=== PATIENT | female | born 1950 | race Caucasian/White ===

== ENCOUNTER 2017-06-23 16:19 | Inpatient (IN) | payer MEDICARE, OTHER, SELFPAY ==
[2017-06-23 16:20] VITALS: BP 140/92; PULSE 85; RESP 18; TEMP 36.4; O2SAT 100; BMI 24.0
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
[2017-06-23 17:52] VITALS: BP 121/76; PULSE 64; RESP 18; O2SAT 99
[2017-06-23 18:06] LABS: Absolute Lymphocyte Count 0.61 X10^3/ul (0.83-4.51); Absolute Neutrophil Count 10.9 X10^3/uL (2.0-7.7); Basophil# 0.02 X10^3/uL; Basophil% 0.2 % (0-1); Eosinophil# 0.02 X10^3/uL; Eosinophils% 0.2 % (0-5); Hematocrit 34.8 % (37-47); Hemoglobin 11.1 g/dl (12.0-15.0); Lymphocyte # 0.61 X10^3/ul (4.0); Lymphocyte % 5.1 % (19-41); Mean Corp Hgb Conc 31.9 g/gl (32-36); Mean Corpuscular Hgb 29.8 pg (27.0-32.0); Mean Corpuscular Volume 93.5 fL (81-99); Monocyte# 0.42 X10^3/uL; Monocyte% 3.5 % (0-10); Neutrophil # 10.88 X10^3/uL (2.7-7.7); Neutrophil % 90.7 % (47-70); Platelet Count 352 K/mm3 (150-450); RBC Distribution Width CV 13.7 % (11.6-14.6); RBC Distribution Width SD 46.8 fl (35.1-43.9); Red Blood Count 3.72 M/mm3 (4.2-5.4)
[2017-06-23 18:07] LABS: POSITIVE COUNT NO; POSITIVE DIFFERENTIAL NO; POSITIVE MORPHOLOGY NO
[2017-06-23 18:17] LABS: Anion Gap 8 (5-15); BUN 8 mg/dL (7-18); BUN/Creat Ratio 11.8 RATIO (10-20); Calcium,Total 8.8 mg/dL (8.5-10.1); Chloride 105 mmol/L (98-107); Creatinine, Serum 0.68 mg/dL (0.55-1.02); EST Glomerular Filtration Rate 92 mL/min (>60); Est Glom Filt Rate - Afr Amer 111 mL/min (>60); Estimated Creatinine Clearance 55.82 ml/min; Glucose 128 mg/dL (74-106); Potassium 3.5 mmol/L (3.5-5.1); Sodium Level 139 mmol/L (136-145)
--- NOTE | 2017-06-23 18:20 | NURSING ---
PATIENT UNABLE TO BE ADMITTED, NOT REGISTERED
[2017-06-23 18:42] VITALS: BP 121/79; PULSE 84; RESP 18; O2SAT 99
[2017-06-23 20:12] VITALS: BP 139/75; PULSE 71; RESP 18; O2SAT 99
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
[2017-06-23 20:42] VITALS: BMI 21.9
[2017-06-23 20:48] VITALS: BMI 21.9
[2017-06-23 21:05] VITALS: BP 113/69; PULSE 46; RESP 16; TEMP 37; O2SAT 98
[2017-06-23] MEDS: oxyCODONE 5 MG Tablet PO (21:31)
[2017-06-23] MEDS: 0.9% Normal Saline 1,000 ML 100 ML IV (21:32)
[2017-06-24] MEDS: oxyCODONE 5 MG Tablet PO ×3 (04:05→20:37)
[2017-06-24 04:16] VITALS: BP 100/59; PULSE 86; RESP 18; TEMP 37.2; O2SAT 95
[2017-06-24 06:10] LABS: Absolute Lymphocyte Count 0.58 X10^3/ul (0.83-4.51); Absolute Neutrophil Count 5.3 X10^3/uL (2.0-7.7); Basophil# 0.03 X10^3/uL; Basophil% 0.5 % (0-1); Eosinophil# 0.01 X10^3/uL; Eosinophils% 0.2 % (0-5); Hematocrit 31.4 % (37-47); Hemoglobin 10.1 g/dl (12.0-15.0); Lymphocyte # 0.58 X10^3/ul (4.0); Lymphocyte % 9.1 % (19-41); Mean Corp Hgb Conc 32.2 g/gl (32-36); Mean Corpuscular Hgb 30.6 pg (27.0-32.0); Mean Corpuscular Volume 95.2 fL (81-99); Mean Platelet Vol. 8.6 fl (6.2-12.0); Monocyte# 0.42 X10^3/uL; Monocyte% 6.6 % (0-10); Neutrophil % 83.4 % (47-70); Platelet Count 311 K/mm3 (150-450); RBC Distribution Width CV 13.6 % (11.6-14.6); RBC Distribution Width SD 45.2 fl (35.1-43.9); White Blood Count 6.4 K/mm3 (4.4-11.0)
[2017-06-24 06:11] LABS: Differential Indicated SCAN CRITERIA MET; POSITIVE COUNT NO; POSITIVE DIFFERENTIAL YES; POSITIVE MORPHOLOGY NO
[2017-06-24 06:13] LABS: International Normalized Ratio 1.1; Partial Thromboplast Time 26.1 Seconds (24.1-36.2)
[2017-06-24 06:16] LABS: Differential Comment SCANNED
[2017-06-24 06:27] LABS: Anion Gap 7 (5-15); BUN 10 mg/dL (7-18); BUN/Creat Ratio 16.8 RATIO (10-20); Calcium,Total 8.8 mg/dL (8.5-10.1); Chloride 104 mmol/L (98-107); EST Glomerular Filtration Rate 107 mL/min (>60); Est Glom Filt Rate - Afr Amer 130 mL/min (>60); Estimated Creatinine Clearance 55.82 ml/min; Glucose 99 mg/dL (74-106); Potassium 3.9 mmol/L (3.5-5.1); Sodium Level 140 mmol/L (136-145)
[2017-06-24] MEDS: 0.9% Normal Saline 1,000 ML 100 ML IV (07:37)
[2017-06-24] MEDS: Calcium Carb/Vitamin D 1 TABLET Tablet PO (09:07)
[2017-06-24] MEDS: PARoxetine CR 12.5 MG Tablet 25 MG PO (09:07)
[2017-06-24] MEDS: Linacolotide 145 MCG CAPSULE 290 MCG PO (09:07)
[2017-06-24 09:19] VITALS: BP 91/59; PULSE 84; RESP 16; TEMP 37.1; O2SAT 98
[2017-06-24] MEDS: Polyethylene Glycol 3350 17 GM PACKET 34 GM PO (12:23)
[2017-06-24] MEDS: fentaNYL 25 MCG Patch TRANSDERM. (12:23)
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
--- NOTE | 2017-06-24 15:09 | NURSING ---
Up to [facility] at this time. Was recently ambulating halls with therapy. Does well ambulating and changing position.
[2017-06-24 15:36] VITALS: BP 99/62; PULSE 78; RESP 18; TEMP 37.2; O2SAT 96
[2017-06-24] MEDS: 0.9% NaCl Peripheral Flush Adult/Peds IV (15:36)
[2017-06-24 20:32] VITALS: BP 113/64; PULSE 81; RESP 16; TEMP 38.1; O2SAT 98
[2017-06-25 04:00] VITALS: BP 112/66; PULSE 74; RESP 16; TEMP 37.3; O2SAT 97
[2017-06-25] MEDS: oxyCODONE 5 MG Tablet PO (05:22)
[2017-06-25 09:05] VITALS: BP 106/61; PULSE 75; RESP 18; TEMP 36.8; O2SAT 98
[2017-06-25] MEDS: Linacolotide 145 MCG CAPSULE 290 MCG PO (09:27)
[2017-06-25] MEDS: PARoxetine CR 12.5 MG Tablet 25 MG PO (09:28)
[2017-06-25] MEDS: Calcium Carb/Vitamin D 1 TABLET Tablet PO (09:28)
--- NOTE | 2017-06-25 11:47 | CASEMGMT ---
Addendum entered by Мария Tariq 06/25/17 13:03: SW spoke w/pt again, [facility] is her second choice if rehab does not have a bed. RUDI Rosales, DRILLING [employer]OR Original Note: See assessment. SW spoke w/pt at bedside. Pt lives home alone, is normally fully independent. Pt does not feel she can go home just yet. SW reviewed rehab and SNF options, the difference between the two. Pt agreeable to referral to rehab. SW explained will make referral, and will need to see if insurance will authorize. SW explained if insurance will not authorize, we can look into residential option. SW gave pt list of SNF's that take her insurance, did explain that the hospital's TCU does not have any beds at present. Pt states understanding. SW explained will let her know as soon as rehab hears anything from insurance. SW called Jeana in rehab who is in agreement pt is appropriate and will make referral to insurance. SW will continue to follow. RUDI Rosales, DRILLING CONTRACTOR
[2017-06-25 13:10] LABS: Mucous, Urine 0 SEEN /hpf (<or=2+); Red Blood Cells-Urine 0 SEEN /hpf (0-5); Squamous Epithelial Cells - UA 0 SEEN /hpf (5-10)
[2017-06-25 13:14] LABS: Color, Urine Yellow (Yellow); Glucose, Dipstick Normal (Normal); Ketone-Dipstick Negative (Negative); Leukocyte Esterase-Dipstick 25 /ul (Negative); Nitrite-Dipstick Negative (Negative); Occult Blood-Urine 10 /ul (Negative); Protein-Dipstick Negative (Negative); Specific Gravity, Urine 1.015 (1.002-1.030); Urine Bilirubin Dipstick Negative (Negative); Urine Clarity Clear (Clear); Urine Urobilinogen Normal (Normal); Urine pH 6.5 (5.0 - 8.0)
[2017-06-25 13:22] LABS: Bacteria RARE /hpf (None Seen); White Blood Cells 0-5 SEEN /hpf (0-5)
[2017-06-25 13:59] VITALS: BP 101/58; PULSE 80; RESP 18; TEMP 36.3; O2SAT 96
--- NOTE | 2017-06-25 15:16 | PCM.DC ---
- Discharge Diagnoses Current Active Problems: Current Active and Chronic Problems Depression (Acute) Fracture of superior pubic ramus (Acute) Fracture of inferior pubic ramus (Acute) You will use the following diet at home:: Cardiac Your food should be the consistency of: Regular Discharge Activity: May not drive while taking narcotic pain medications. Allergies/Adverse Reactions: Allergies No Known Allergies Allergy (Verified 06/23/17 16:23) Medications to take at Discharge Paroxetine HCl [Paxil Cr] 25 mg PO DAILY 08/18/14 Linaclotide [Linzess] 290 mcg PO DAILY 06/23/17 Calcium Carb/Vitamin D [Os-Estuardo 500MG + D] 1 tablet PO DAILY tablet 06/25/17 Mag Hydrox/Al Hydrox/Simeth [Mylanta II] 30 ml PO Q6H PRN PRN udc 06/25/17 Oxycodone [Oxyir] 5 mg PO Q4H PRN PRN 1 Days #4 tablet 06/25/17 Polyethylene Glycol 3350 [Miralax] 34 gm PO DAILY packet 06/25/17 Primary Care Physician: Chalo Sierra Jr., MD [Primary Care Provider] - Please follow up with your Primary Care Physician in: in 2 weeks
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
--- NOTE | 2017-06-25 15:20 | CASEMGMT ---
Patient was approved to go to inpatient rehab today. LIDIA notified Dr Jacobsen and he will d/c patient today. LIDIA called Jeana in the rehab unit and let her know patient will come today. LIDIA let patient know and answered her questions. She said she could notify family. LIDIA also let RN know that patient can go to 4th floor rehab today once d/c instructions are done. Plan: [facility] 4th floor rehab unit. Verena GREGORY MSW
== END 2017-06-25 15:54 | DRG 536 ==
LOC: ED 18:31 → MS2 20:23
PROVIDERS: Admitting Provider Internal Medicine; Emergency Provider Emergency Medicine; Family Provider Internal Medicine; PCP Internal Medicine; Visit Provider Internal Medicine
DX: S32.512A Fracture of superior rim of left pubis, initial encounter for closed fracture (principal); F32.9 Major depressive disorder, single episode, unspecified; S32.592A Other specified fracture of left pubis, initial encounter for closed fracture; K59.09 Other constipation; V18.0XXA Pedal cycle driver injured in noncollision transport accident in nontraffic accident, initial encounter; Y93.55 Activity, bike riding; Y92.89 Other specified places as the place of occurrence of the external cause; Z79.899 Other long term (current) drug therapy
CPT/HCPCS: 72100; 73502; 73560; 73564; 80048; 81001; 85025; 85610; 85730; 87086; 87088; 97110; 97116; 97162; 97165; 99284; J7030; A4216; G8978; G8979; G8987; G8988; J2405

== ENCOUNTER 2017-06-25 16:53 | Inpatient (IN) | payer OTHER, SELFPAY ==
[2017-06-25 17:24] VITALS: BP 107/74; PULSE 86; RESP 16; TEMP 37; O2SAT 100; BMI 22.6
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
[2017-06-25] MEDS: oxyCODONE 5 MG Tablet PO ×2 (19:07→23:41)
[2017-06-25 20:02] VITALS: BMI 22.6
[2017-06-25] MEDS: Senna/Docusate Sodium 1 Tablet 2 TABLET PO (20:33)
[2017-06-25] MEDS: Heparin Injection 5,000 UNITS/ML Syringe 5000 UNITS SC (20:33)
[2017-06-25 21:52] VITALS: BP 106/64; PULSE 81; RESP 18; TEMP 37.1
[2017-06-26] MEDS: oxyCODONE 5 MG Tablet PO ×2 (05:18→11:19)
[2017-06-26] MEDS: Heparin Injection 5,000 UNITS/ML Syringe 5000 UNITS SC ×3 (05:18→19:53)
[2017-06-26] MEDS: Calcium Carb/Vitamin D 1 TABLET Tablet PO (08:01)
[2017-06-26] MEDS: Senna/Docusate Sodium 1 Tablet 2 TABLET PO (08:01)
[2017-06-26] MEDS: PARoxetine CR 12.5 MG Tablet 25 MG PO (08:01)
[2017-06-26] MEDS: Polyethylene Glycol 3350 17 GM PACKET 34 GM PO (08:02)
[2017-06-26 08:35] VITALS: BP 107/64; PULSE 84; RESP 17; TEMP 37.4; O2SAT 100
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
[2017-06-26] MEDS: Mag Hydrox/Al Hydrox/Simeth 30 ML UDC PO (11:19)
--- NOTE | 2017-06-26 13:46 | PCM.RU.PYE ---
Admission Information Status Changes from Prescreening?: No changes Identified Actual Problem List:: Falls, Mobility Impaired, Self Care Deficit Potential Problem List:: DVT, Bleeding, Infection, UTI, Aspiration, Falls, Skin Integrity, Depression Risk of Complications DVT: LMWH, SUSAN Hose, Sequential Compression Device Bleeding: Monitor Lab Values, Nursing to Teach Precautions for anti-coagulation therapy., Wound, if applicable, to be assessed every shift., Stroke patients assessed for lethargy or change in status. Infection: Clinical Staff to Monitor for S/S of infection:, S/S of infection include fever, redness, warmth, etc. Urinary Tract Infection: Monitor for frequency, burning, discomfort, or incontinence., Nursing will obtain urine sample for urinalysis and C&S when ordered. Aspiration: Clinical staff will monitor for coughing, drooling, congestion., Speech will evaluate swallowing and dsyphasia., Nursing will monitor patient swallowing during meals. Falls: Patient will be evaluated for Fall Precautions, Patient will be placed on Fall Precautions as indicated per protocol. Skin Breakdown: Nursing will assess skin daily using assessment tool., Nursing will place on Skin Breakdown Precautions as indicated. Pain: Clinical staff will assess patient's pain level per protocol., Medications will be given, if needed, and the pain level reassessed., Other methods: Massage, distraction, decrease stimulus, etc. used PRN. Plan of Care Patient requires physician specializing in physical medicine and rehab oversight to provide close medical supervision of rehab issues including: Pain Management, Sleep Problems, Bowel and Bladder, Medical and co-morbidity Management, DVT prophylaxis, Rehabilitation Leadership, Coordination of treatment team Patient needs Physical Therapy: For a minimum of 1 hour, At least 5 out of 7 days Patient needs Physical Therapy to improve:: Mobility, Mobility, Mobility, Strengthening, Transfers, Stretching, ROM, Endurance, Stairs, Gait, Balance Patient needs Occupational Therapy: For a minimum of 1 hour, At least 5 out of 7 days Patient needs Occupational Therapy to improve ADL's incl.: Eating, Grooming, Bathing, Dressing, Toileting, Toilet transfers, Community Reintegration, Higher functioning activities, Household tasks, Adaptive Equipment, Splinting, Other activities as determined Patient requires speech therapy: For a minimum of 1 hour, At least 5 out of 7 days Patient requires speech therapy for: Swallowing, Cognition, Language Skills, Compensatory Strategies Patient requires / Rehabilitation Nursing for: Pain Issues, Identifying and preventing risk factors, Monitoring and reporting current medical conditions, Assisting with ambulation, transfer, and all ADL's, Teaching patients about disease process and medications, Family teaching, Providing safe environment, Bowel and Bladder Issues, Skin integrity, Medication Management Patient needs Taffy Candy Maker/ Case Management for: Discharge Planning, Arranging Home Equipment or Services, Family Interventions Patient needs Dietary and Nutrition Services for: Adequate Nutrition, Nutritional Supplements, Nutritional Education Goals Patient will remain: free from falls, or injury at time of discharge. Patient will perform bed mobility at: MOD I level of assist. Patient will complete transfers from bed to chair at: MOD I level of assist. Patient will ambulate: 100 feet, with MOD I assist, with LRD Patient will complete upper body dressing at: MOD I level of assist. Patient will complete lower body dressing at: MOD I level of assist. Patient will complete toileting at: MOD I level of assist. Patient will perform bathing at: MOD I level of assist. Patient will complete grooming at: MOD I level of assist. Patient will complete home management skills at: MOD I level of assist. Patient will achieve: 12 stairs, at MOD I assist Patient will have pain level of: of 3 or less Patient's skin will: remain intact, free from infection. Patient will receive: adequate nutrition. Discharge Planning Pt Prognosis for Sig. Practical Improv. w/in Reasonable Time: Good Estimated Length of stay (days): 14 Anticipated D/C Destination: Home Was Preadmission Assessment Accurate?: Yes
--- NOTE | 2017-06-26 15:22 | CASEMGMT ---
Insurance Clinical information faxed. Pending continued stay approval at this time. Auth#[id number] Anni VARMA, EVP [employer]
--- NOTE | 2017-06-26 16:49 | CASEMGMT ---
Insurance Continued stay approved with next update due on 07/02/17. Auth#[id number] Anni VARMA, MANAGER [employer]
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
[2017-06-26 19:40] VITALS: BP 105/61; PULSE 84; RESP 18; TEMP 37.4; O2SAT 98
--- NOTE | 2017-06-27 01:11 | NURSING ---
REVIEWED AND AGREE WITH CLAMPER'S FIM AND HANDOFF CHARTING.
[2017-06-27] MEDS: Heparin Injection 5,000 UNITS/ML Syringe 5000 UNITS SC ×3 (06:35→20:18)
[2017-06-27] MEDS: Polyethylene Glycol 3350 17 GM PACKET 34 GM PO (07:47)
[2017-06-27] MEDS: Senna/Docusate Sodium 1 Tablet 2 TABLET PO ×2 (07:47→20:19)
[2017-06-27] MEDS: PARoxetine CR 12.5 MG Tablet 25 MG PO (07:47)
[2017-06-27] MEDS: oxyCODONE 5 MG Tablet PO ×2 (07:47→14:02)
[2017-06-27] MEDS: Calcium Carb/Vitamin D 1 TABLET Tablet PO (07:50)
[2017-06-27 08:42] VITALS: BP 104/67; PULSE 76; RESP 18; TEMP 36.8; O2SAT 99
[2017-06-27] MEDS: fentaNYL 25 MCG Patch TRANSDERM. (08:42)
--- NOTE | 2017-06-27 10:39 | PCM.PN.NEU ---
Subjective: Patient seen and examined. Complaining of left side rib pain, shortness of breath on inhalation, no chest x-ray was done on admission will obtain one today. Otherwise patient is tolerating therapy. No issues with , does have chronic constipation, and is on Linzess and Miralax. - Physical Exam General: Alert, Oriented x3, Cooperative HEENT: Atraumatic, PERRLA, EOMI, Normocephalic Neck: Supple, No JVD, Negative Carotid Bruits Lungs: Clear to auscultation, Normal air movement Cardiovascular: Regular rate, No murmurs Abdomen: Bowel Sounds Present, Soft, Non Tender Extremities: No edema, Capillary Refill Less than 3 Seconds Skin: No rashes, No breakdown Musculoskeletal: No Tenderness to Palpation of Joints or Extremities Neurological: Cranial nerves II-XII grossly intact Psych/Mental Status: Normal Affect, Appropriate Vital Signs Temp Pulse Resp BP Pulse Ox 98.2 F 76 18 104/67 99 06/27/17 08:42 06/27/17 08:42 06/27/17 08:42 06/27/17 08:42 06/27/17 08:42 Oxygen Delivery Method Room Air Weight: 67.5 kg Body Mass Index (BMI) 22.6 Intake and Output for Last 24 Hours 06/25/17 06/26/17 06/27/17 23:59 23:59 23:59 Intake Total 240 / 240 720 / 720 240 / 240 Output Total 1450 / 1450 Balance 240 / 240 -730 / -730 240 / 240 Active Medications Al Hydroxide/Mg Hydroxide (Mylanta Ii) 30 ml PO Q6H PRN PRN PRN Reason: INDIGESTION Last Admin: 06/26/17 11:19 Dose: 30 ml Bisacodyl (Dulcolax) 10 mg RECTAL .PRN X 1 PRN PRN Reason: Constipation Calcium/Vitamin D (Os-Estuardo 500mg + D) 1 tablet PO DAILYCM [facility] Last Admin: 06/27/17 07:50 Dose: 1 tablet Fentanyl (Duragesic) 25 mcg TRANSDERM. Q3D [facility] Last Admin: 06/27/17 08:42 Dose: 25 mcg Heparin Sodium (Porcine) () 5,000 units SC Q8 [facility] Last Admin: 06/27/17 06:35 Dose: 5,000 units Lorazepam (Ativan) 0.5 mg PO QHS PRN PRN PRN Reason: Insomnia Magnesium Hydroxide (Milk Of Magnesia) 30 ml PO .PRN X 1 PRN PRN Reason: Constipation Oxycodone HCl (Oxyir) 5 mg PO Q4H PRN PRN PRN Reason: Moderate Pain (pain scale 4-5) Last Admin: 06/27/17 07:47 Dose: 5 mg Paroxetine HCl (Paxil Cr) 25 mg PO DAILY [facility] Last Admin: 06/27/17 07:47 Dose: 25 mg Polyethylene Glycol (Miralax) 34 gm PO DAILY [facility] Last Admin: 06/27/17 07:47 Dose: 34 gm Senna/Docusate Sodium (Senokot-S, Carolynn-Colace) 2 tablet PO BID [facility] Last Admin: 06/27/17 07:47 Dose: 2 tablet Assessment/Plan Debility status post comminuted fracture of the left superior and inferior pubic ramus. Goal of rehab is jewish of prior level of functional independence. Plan: - Physical therapy for gait and balance - Occupational Therapy for ADLs - As needed analgesics - Bowel protocol - DVT prophylaxis: SCDs, Cresencio Hoses, Heparin - Hx Depression => continue home dose of Paxil - Hx chronic constipation => patient is on Linzess, On MiraLAX.
--- NOTE | 2017-06-27 10:51 | PN.NEURO_ITS ---
Addendum entered and electronically signed by Lelia Gray MD 15:23: I have personally examined the patient at bedside. Please see LOCOMOTIVE DRIVER Kassandra Stone's note as below for further complete details. I have discussed the management plan for the patient in detail with MACARENA Stone and please see the plan as noted below. Patient tolerating therapies well, GI/DVT prophylaxis, falls precautions. Original Note: Subjective: Patient seen and examined. Complaining of left side rib pain, shortness of breath on inhalation, no chest x-ray was done on admission will obtain one today. Otherwise patient is tolerating therapy. No issues with , does have chronic constipation, and is on Linzess and Miralax. - Physical Exam General: Alert, Oriented x3, Cooperative HEENT: Atraumatic, PERRLA, EOMI, Normocephalic Neck: Supple, No JVD, Negative Carotid Bruits Lungs: Clear to auscultation, Normal air movement Cardiovascular: Regular rate, No murmurs Abdomen: Bowel Sounds Present, Soft, Non Tender Extremities: No edema, Capillary Refill Less than 3 Seconds Skin: No rashes, No breakdown Musculoskeletal: No Tenderness to Palpation of Joints or Extremities Neurological: Cranial nerves II-XII grossly intact Psych/Mental Status: Normal Affect, Appropriate Vital Signs Temp Pulse Resp BP Pulse Ox 98.2 F 76 18 104/67 99 06/27/17 08:42 06/27/17 08:42 06/27/17 08:42 06/27/17 08:42 06/27/17 08:42 Oxygen Delivery Method Room Air Weight: 67.5 kg Body Mass Index (BMI) 22.6 Intake and Output for Last 24 Hours 06/25/17 06/26/17 06/27/17 23:59 23:59 23:59 Intake Total 240 / 240 720 / 720 240 / 240 Output Total 1450 / 1450 Balance 240 / 240 -730 / -730 240 / 240 Active Medications Al Hydroxide/Mg Hydroxide (Mylanta Ii) 30 ml PO Q6H PRN PRN PRN Reason: INDIGESTION Last Admin: 06/26/17 11:19 Dose: 30 ml Bisacodyl (Dulcolax) 10 mg RECTAL .PRN X 1 PRN PRN Reason: Constipation Calcium/Vitamin D (Os-Estuardo 500mg + D) 1 tablet PO DAILYCM [facility] Last Admin: 06/27/17 07:50 Dose: 1 tablet Fentanyl (Duragesic) 25 mcg TRANSDERM. Q3D [facility] Last Admin: 06/27/17 08:42 Dose: 25 mcg Heparin Sodium (Porcine) () 5,000 units SC Q8 [facility] Last Admin: 06/27/17 06:35 Dose: 5,000 units Lorazepam (Ativan) 0.5 mg PO QHS PRN PRN PRN Reason: Insomnia Magnesium Hydroxide (Milk Of Magnesia) 30 ml PO .PRN X 1 PRN PRN Reason: Constipation Oxycodone HCl (Oxyir) 5 mg PO Q4H PRN PRN PRN Reason: Moderate Pain (pain scale 4-5) Last Admin: 06/27/17 07:47 Dose: 5 mg Paroxetine HCl (Paxil Cr) 25 mg PO DAILY [facility] Last Admin: 06/27/17 07:47 Dose: 25 mg Polyethylene Glycol (Miralax) 34 gm PO DAILY [facility] Last Admin: 06/27/17 07:47 Dose: 34 gm Senna/Docusate Sodium (Senokot-S, Carolynn-Colace) 2 tablet PO BID [facility] Last Admin: 06/27/17 07:47 Dose: 2 tablet Assessment/Plan Debility status post comminuted fracture of the left superior and inferior pubic ramus. Goal of rehab is judaism of prior level of functional independence. Plan: - Physical therapy for gait and balance - Occupational Therapy for ADLs - As needed analgesics - Bowel protocol - DVT prophylaxis: SCDs, Cresencio Villar, Heparin - Hx Depression => continue home dose of Paxil - Hx chronic constipation => patient is on Linzess, On MiraLAX.
[2017-06-27] MEDS: Mag Hydrox/Al Hydrox/Simeth 30 ML UDC PO (12:02)
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
[2017-06-27 21:11] VITALS: BP 103/69; PULSE 67; RESP 18; TEMP 36.9; O2SAT 94
--- NOTE | 2017-06-28 00:47 | NURSING ---
Reviewed and agree with LPNs fims and handoff
[2017-06-28] MEDS: Heparin Injection 5,000 UNITS/ML Syringe 5000 UNITS SC ×3 (05:47→20:33)
[2017-06-28] MEDS: oxyCODONE 5 MG Tablet PO ×3 (06:33→17:37)
[2017-06-28 07:52] VITALS: BP 105/64; PULSE 77; RESP 18; TEMP 36.9; O2SAT 97
[2017-06-28] MEDS: Calcium Carb/Vitamin D 1 TABLET Tablet PO (08:07)
[2017-06-28] MEDS: Polyethylene Glycol 3350 17 GM PACKET 34 GM PO (08:07)
[2017-06-28] MEDS: Senna/Docusate Sodium 1 Tablet 2 TABLET PO ×2 (08:07→20:34)
[2017-06-28] MEDS: PARoxetine CR 12.5 MG Tablet 25 MG PO (08:07)
--- NOTE | 2017-06-28 10:32 | PCM.PN.NEU ---
Subjective: Patient seen and examined. No acute events overnight. Pain is controlled on current medications. Tolerating therapy. Breathing is better chest x-ray done yesterday did not show any acute fractures, but did however show some mild scarring in the left upper lobe of the lung, informed the patient of this incidental findings. No issues with GI/. - Physical Exam General: Alert, Oriented x3, Cooperative HEENT: Atraumatic, PERRLA, EOMI, Normocephalic Neck: Supple, No JVD, Negative Carotid Bruits Lungs: Clear to auscultation, Normal air movement Cardiovascular: Regular rate, No murmurs Abdomen: Bowel Sounds Present, Soft, Non Tender Extremities: No edema, Capillary Refill Less than 3 Seconds Skin: No rashes, No breakdown Musculoskeletal: No Tenderness to Palpation of Joints or Extremities Neurological: Cranial nerves II-XII grossly intact Psych/Mental Status: Normal Affect, Appropriate Vital Signs Temp Pulse Resp BP Pulse Ox 98.5 F 77 18 105/64 97 06/28/17 07:52 06/28/17 07:52 06/28/17 07:52 06/28/17 07:52 06/28/17 07:52 Oxygen Delivery Method Room Air Weight: 67.5 kg Body Mass Index (BMI) 22.6 Intake and Output for Last 24 Hours 06/26/17 06/27/17 06/28/17 23:59 23:59 23:59 Intake Total 720 / 720 600 / 600 Output Total 1450 / 1450 Balance -730 / -730 600 / 600 Active Medications Al Hydroxide/Mg Hydroxide (Mylanta Ii) 30 ml PO Q6H PRN PRN PRN Reason: INDIGESTION Last Admin: 06/27/17 12:02 Dose: 30 ml Bisacodyl (Dulcolax) 10 mg RECTAL .PRN X 1 PRN PRN Reason: Constipation Calcium/Vitamin D (Os-Estuardo 500mg + D) 1 tablet PO DAILYCM [facility] Last Admin: 06/28/17 08:07 Dose: 1 tablet Fentanyl (Duragesic) 25 mcg TRANSDERM. Q3D [facility] Last Admin: 06/27/17 08:42 Dose: 25 mcg Heparin Sodium (Porcine) () 5,000 units SC Q8 [facility] Last Admin: 06/28/17 05:47 Dose: 5,000 units Lorazepam (Ativan) 0.5 mg PO QHS PRN PRN PRN Reason: Insomnia Magnesium Hydroxide (Milk Of Magnesia) 30 ml PO .PRN X 1 PRN PRN Reason: Constipation Oxycodone HCl (Oxyir) 5 mg PO Q4H PRN PRN PRN Reason: Moderate Pain (pain scale 4-5) Last Admin: 06/28/17 06:33 Dose: 5 mg Paroxetine HCl (Paxil Cr) 25 mg PO DAILY [facility] Last Admin: 06/28/17 08:07 Dose: 25 mg Polyethylene Glycol (Miralax) 34 gm PO DAILY [facility] Last Admin: 06/28/17 08:07 Dose: 34 gm Senna/Docusate Sodium (Senokot-S, Carolynn-Colace) 2 tablet PO BID [facility] Last Admin: 06/28/17 08:07 Dose: 2 tablet Assessment/Plan Debility status post comminuted fracture of the left superior and inferior pubic ramus. Goal of rehab is sikh of prior level of functional independence. Plan: - Physical therapy for gait and balance - Occupational Therapy for ADLs - As needed analgesics - Bowel protocol - DVT prophylaxis: SCDs, Cresencio Hoses, Heparin - Hx Depression => continue home dose of Paxil - Hx chronic constipation => patient is on Linzess, On MiraLAX. - Chest x-ray => No acute fractures noted, incidental findings of mild scarring in the left upper lobe noted patient informed.
--- NOTE | 2017-06-28 10:40 | PN.NEURO_ITS ---
Subjective: Patient seen and examined. No acute events overnight. Pain is controlled on current medications. Tolerating therapy. Breathing is better chest x-ray done yesterday did not show any acute fractures, but did however show some mild scarring in the left upper lobe of the lung, informed the patient of this incidental findings. No issues with GI/. - Physical Exam General: Alert, Oriented x3, Cooperative HEENT: Atraumatic, PERRLA, EOMI, Normocephalic Neck: Supple, No JVD, Negative Carotid Bruits Lungs: Clear to auscultation, Normal air movement Cardiovascular: Regular rate, No murmurs Abdomen: Bowel Sounds Present, Soft, Non Tender Extremities: No edema, Capillary Refill Less than 3 Seconds Skin: No rashes, No breakdown Musculoskeletal: No Tenderness to Palpation of Joints or Extremities Neurological: Cranial nerves II-XII grossly intact Psych/Mental Status: Normal Affect, Appropriate Vital Signs Temp Pulse Resp BP Pulse Ox 98.5 F 77 18 105/64 97 06/28/17 07:52 06/28/17 07:52 06/28/17 07:52 06/28/17 07:52 06/28/17 07:52 Oxygen Delivery Method Room Air Weight: 67.5 kg Body Mass Index (BMI) 22.6 Intake and Output for Last 24 Hours 06/26/17 06/27/17 06/28/17 23:59 23:59 23:59 Intake Total 720 / 720 600 / 600 Output Total 1450 / 1450 Balance -730 / -730 600 / 600 Active Medications Al Hydroxide/Mg Hydroxide (Mylanta Ii) 30 ml PO Q6H PRN PRN PRN Reason: INDIGESTION Last Admin: 06/27/17 12:02 Dose: 30 ml Bisacodyl (Dulcolax) 10 mg RECTAL .PRN X 1 PRN PRN Reason: Constipation Calcium/Vitamin D (Os-Estuardo 500mg + D) 1 tablet PO DAILYCM [facility] Last Admin: 06/28/17 08:07 Dose: 1 tablet Fentanyl (Duragesic) 25 mcg TRANSDERM. Q3D [facility] Last Admin: 06/27/17 08:42 Dose: 25 mcg Heparin Sodium (Porcine) () 5,000 units SC Q8 [facility] Last Admin: 06/28/17 05:47 Dose: 5,000 units Lorazepam (Ativan) 0.5 mg PO QHS PRN PRN PRN Reason: Insomnia Magnesium Hydroxide (Milk Of Magnesia) 30 ml PO .PRN X 1 PRN PRN Reason: Constipation Oxycodone HCl (Oxyir) 5 mg PO Q4H PRN PRN PRN Reason: Moderate Pain (pain scale 4-5) Last Admin: 06/28/17 06:33 Dose: 5 mg Paroxetine HCl (Paxil Cr) 25 mg PO DAILY [facility] Last Admin: 06/28/17 08:07 Dose: 25 mg Polyethylene Glycol (Miralax) 34 gm PO DAILY [facility] Last Admin: 06/28/17 08:07 Dose: 34 gm Senna/Docusate Sodium (Senokot-S, Carolynn-Colace) 2 tablet PO BID [facility] Last Admin: 06/28/17 08:07 Dose: 2 tablet Assessment/Plan Debility status post comminuted fracture of the left superior and inferior pubic ramus. Goal of rehab is buddhism of prior level of functional independence. Plan: - Physical therapy for gait and balance - Occupational Therapy for ADLs - As needed analgesics - Bowel protocol - DVT prophylaxis: SCDs, Cresencio Hoses, Heparin - Hx Depression => continue home dose of Paxil - Hx chronic constipation => patient is on Linzess, On MiraLAX. - Chest x-ray => No acute fractures noted, incidental findings of mild scarring in the left upper lobe noted patient informed.
[2017-06-28 20:49] VITALS: BP 107/70; PULSE 77; RESP 18; TEMP 37.1; O2SAT 96
--- NOTE | 2017-06-29 03:17 | NURSING ---
Reviewed and agree with LPNs fims and handoff
[2017-06-29] MEDS: Heparin Injection 5,000 UNITS/ML Syringe 5000 UNITS SC ×3 (05:01→21:10)
[2017-06-29] MEDS: oxyCODONE 5 MG Tablet PO ×3 (05:02→21:16)
[2017-06-29 07:00] VITALS: BP 94/52; PULSE 82; RESP 16; TEMP 36.8; O2SAT 94
[2017-06-29] MEDS: Polyethylene Glycol 3350 17 GM PACKET 34 GM PO (09:23)
[2017-06-29] MEDS: Calcium Carb/Vitamin D 1 TABLET Tablet PO (09:23)
[2017-06-29] MEDS: PARoxetine CR 12.5 MG Tablet 25 MG PO (09:23)
[2017-06-29] MEDS: Senna/Docusate Sodium 1 Tablet 2 TABLET PO ×2 (09:24→21:11)
[2017-06-29] MEDS: Magnesium Hydroxide 30 ML UDC PO (14:53)
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
[2017-06-29 21:19] VITALS: BP 103/60; PULSE 74; RESP 17; TEMP 36.8; O2SAT 96
[2017-06-30] MEDS: Heparin Injection 5,000 UNITS/ML Syringe 5000 UNITS SC ×3 (05:49→20:44)
[2017-06-30 07:38] VITALS: BP 91/46; PULSE 81; RESP 16; TEMP 36.8; O2SAT 97
[2017-06-30] MEDS: Polyethylene Glycol 3350 17 GM PACKET 34 GM PO (07:48)
[2017-06-30] MEDS: Senna/Docusate Sodium 1 Tablet 2 TABLET PO ×2 (07:48→20:45)
[2017-06-30] MEDS: fentaNYL 25 MCG Patch TRANSDERM. ×2 (07:48→18:40)
[2017-06-30] MEDS: Calcium Carb/Vitamin D 1 TABLET Tablet PO (07:48)
[2017-06-30] MEDS: PARoxetine CR 12.5 MG Tablet 25 MG PO (07:48)
--- NOTE | 2017-06-30 12:32 | VDLE_ITS ---
Reason For Study: LEG PAIN RIGHT LEFT CFV is compressible, spontaneous, phasic, GSV is normal. competent and demonstrates normal CFV is compressible, spontaneous, phasic, augmentation. competent, and demonstrates normal Procedure augmentation. Exam performed portable in patient room. FV is compressible, spontaneous, phasic, A preliminary report was called and/or faxed competent and demonstrates normal to RU nurse. augmentation. POP V is compressible, spontaneous, phasic, competent and demonstrates normal augmentation. T/P Trunk is compressible. PTV is compressible. LT PerV is compressible. Interpretation Summary Deep veins of the left lower extremity are patent and compressible segmentally. There is no evidence of left lower extremity deep vein thrombosis. Valvular competence appears intact within the proximal deep venous system on the left . The left greater saphenous vein appears patent and compressible segmentally. Ordering Physician: Gary Zaragoza Referring Physician: Chalo Sierra Performed By: Katy Quiroga RVT
[2017-06-30] MEDS: oxyCODONE 5 MG Tablet PO (13:39)
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
[2017-06-30 19:39] VITALS: BP 115/64; PULSE 56; RESP 17; TEMP 36.7; O2SAT 100
[2017-07-01] MEDS: Heparin Injection 5,000 UNITS/ML Syringe 5000 UNITS SC ×3 (05:14→21:26)
[2017-07-01 07:22] VITALS: BP 99/57; PULSE 66; RESP 18; TEMP 36.7; O2SAT 95
[2017-07-01] MEDS: PARoxetine CR 12.5 MG Tablet 25 MG PO (07:40)
[2017-07-01] MEDS: Calcium Carb/Vitamin D 1 TABLET Tablet PO (07:40)
[2017-07-01 19:34] VITALS: BP 111/61; PULSE 66; RESP 16; TEMP 36.7; O2SAT 99
[2017-07-01] MEDS: Senna/Docusate Sodium 1 Tablet 2 TABLET PO (21:27)
[2017-07-02] MEDS: Heparin Injection 5,000 UNITS/ML Syringe 5000 UNITS SC ×3 (06:08→20:19)
[2017-07-02 07:47] VITALS: BP 96/59; PULSE 79; RESP 18; TEMP 36.6; O2SAT 97
[2017-07-02] MEDS: Calcium Carb/Vitamin D 1 TABLET Tablet PO (08:32)
[2017-07-02] MEDS: PARoxetine CR 12.5 MG Tablet 25 MG PO (08:32)
[2017-07-02] MEDS: Polyethylene Glycol 3350 17 GM PACKET 34 GM PO (08:33)
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
--- NOTE | 2017-07-02 14:27 | NURSING ---
duplex completed to lle, negative for dvt. dr delatorre aware.
[2017-07-02] MEDS: oxyCODONE 5 MG Tablet PO (16:17)
--- NOTE | 2017-07-02 16:33 | CASEMGMT ---
Team meeting held. Patient present as well as patient family. Collaborating with team and patient, discharge date set for 07/03/17. Patient plans to discharge home alone and to follow up with primary care doctor on further therapy recommendations. Patient to have a home exercise program provided by therapy. Patient reporting to have all needed durable medical equipment already set up within the home. Patient brother to provide transportation home for patient at time of discharge. Support given. Proposed discharge date: 07/03/17 PLAN: Discharge home alone. Anni VARMA, [employer]
[2017-07-02] MEDS: Senna/Docusate Sodium 1 Tablet 2 TABLET PO (20:19)
[2017-07-02 22:00] VITALS: BP 113/69; PULSE 70; RESP 16; TEMP 36.3; O2SAT 97
--- NOTE | 2017-07-03 02:23 | NURSING ---
REVIEWED AND AGREE WITH [employer] DES[employer]INEER[employer]S [employer]IM AND HANDOFF CHARTING.
[2017-07-03] MEDS: Heparin Injection 5,000 UNITS/ML Syringe 5000 UNITS SC (04:52)
[2017-07-03] MEDS: PARoxetine CR 12.5 MG Tablet 25 MG PO (09:16)
[2017-07-03] MEDS: fentaNYL 25 MCG Patch TRANSDERM. (09:17)
[2017-07-03] MEDS: Calcium Carb/Vitamin D 1 TABLET Tablet PO (09:17)
[2017-07-03 09:39] VITALS: BP 105/60; PULSE 80; RESP 17; TEMP 36.6; O2SAT 96
--- NOTE | 2017-07-03 09:44 | DCINST_ITS ---
- Discharge Diagnoses Reason(s) for Visit for Discharge Instructions: Pelvic Fracture You will use the following diet at home:: No restrictions, Regular Your food should be the consistency of: Regular Your liquids should be the consistency of: Regular/Thin Discharge Activity: May Not Drive - Until cleared by PCP or Orthopedic Physician , May not drive while taking narcotic pain medications., May Shower, May Take a Tub Bath, Use Walker Weight Bearing Status: Weight bearing as tolerated Call your doctor if you observe: Fever of 101 or Higher, Coldness, Increased Pain, Numbness or Tingling, Change in Color, Inability to urinate, Inability to have a bowel movement, Using more than one pad per hour, Shortness of breath, Dizziness, Fainting spells, Swelling in the ankles, Chest pain, Prolonged hiccoughing, Increased palpitations (irregular heartbeat), Calf discomfort, Uncontrolled pain Allergies/Adverse Reactions: Allergies No Known Allergies Allergy (Verified 06/23/17 16:23) Medications to take at Discharge Paroxetine HCl [Paxil Cr] 25 mg PO DAILY 08/18/14 Linaclotide [Linzess] 290 mcg PO DAILY 06/23/17 Calcium Carb/Vitamin D [Os-Estuardo 500MG + D] 1 tablet PO DAILY 06/25/17 Mag Hydrox/Al Hydrox/Simeth [Mylanta II] 30 ml PO Q6H PRN PRN udc 06/25/17 Oxycodone [Oxyir] 5 mg PO Q4H PRN PRN 7 Days #42 tab 07/03/17 fentaNYL patch [Duragesic patch] 25 mcg TRANSDERM. Q3D #1 patch 07/03/17 The following prescriptions were given: Oxycodone [Oxyir] 5 mg PO Q4H PRN PRN 7 Days #42 tab PRN Reason: Moderate Pain (pain scale 4-5) fentaNYL patch [Duragesic patch] 25 mcg TRANSDERM. Q3D #1 patch Primary Care Physician: Chalo Sierra Jr., MD [Primary Care Provider] - Please Follow Up With: Dr. Chalo Sierra Proposed Discharge Date: 07/03/17
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
[2017-07-03 09:49] VITALS: BP 105/60; PULSE 80; RESP 17; TEMP 36.6; O2SAT 96
--- NOTE | 2017-07-03 10:30 | NURSING ---
went over discharge instructions, medications and appts with pt. Pt verbalized understanding, brother here to take pt home. Pt denies any questions, has all personal belongings upon discharge.
--- NOTE | 2017-07-03 15:38 | CASEMGMT ---
Insurance Notified insurance of patent discharge on 07/03/17 to home alone. Auth#[id number] Anni VARMA, SUPERVISING FLOORPERSON
== END 2017-07-03 10:00 | disposition home or self-care (01) | DRG 561 ==
PROVIDERS: Admitting Provider Psychiatry & Neurology Neurology; Family Provider Internal Medicine; PCP Internal Medicine; Visit Provider Hospitalist
DX: S32.592D Other specified fracture of left pubis, subsequent encounter for fracture with routine healing (principal); F32.9 Major depressive disorder, single episode, unspecified; K59.09 Other constipation; V19.9XXD Pedal cyclist (driver) (passenger) injured in unspecified traffic accident, subsequent encounter; Z79.899 Other long term (current) drug therapy
CPT/HCPCS: 71046; 93971; 97110; 97116; 97162; 97166; 97530; 97535

== ENCOUNTER → 2017-12-14 10:08 | Outpatient (CLI) | payer MEDICARE, OTHER, SELFPAY | PROVIDERS: Family Provider Internal Medicine; PCP Internal Medicine; Visit Provider Internal Medicine | DX: Z12.31 Encounter for screening mammogram for malignant neoplasm of breast (principal) | CPT/HCPCS: 77063; 77067 ==

== ENCOUNTER → 2019-03-27 06:53 | Outpatient (CLI) | payer MEDICARE, OTHER, SELFPAY ==
--- NOTE | 2019-03-27 06:56 | BI_ITS ---
MAMMOGRAPHY - BILATERAL SCREENING REASON FOR EXAM: Female, 69 years old. Routine annual screening examination. PERTINENT HISTORY: Aunt with breast cancer. TECHNIQUE: Digital bilateral breast jed (3D mammographic acquisition) in the CC and MLO projections. 2-D mediolateral oblique (MLO) and craniocaudad (CC) views of both breasts were obtained. CAD: Full Field Digital Mammography with Computer Added Detection was performed. COMPARISON: Comparison is made with prior study dated December 14, 2017 and June 22, 2016. FINDINGS: Breast Composition: The breasts are heterogeneously dense, which may obscure small masses. There are no dominant masses or suspicious calcifications. No other significant abnormalities are identified. There has been no significant change since the prior study. BI/SCREEN MAMM (CAD) W/JED BILAT IMPRESSION: Stable bilateral screening mammogram. Yearly follow-up mammogram recommended. (A) ASSESSMENT CATEGORY: BIRADS Category 1: Negative. A letter regarding these results will be sent to the patient by the facility within 30 days. Approximately 10% of breast cancers are not detected by mammography. A normal mammogram should not delay biopsy of a clinically suspicious abnormality. [id number] Electronically Signed: Siddhartha Peters, at 8:50 EST , Service support ,
== END ==
PROVIDERS: Family Provider Internal Medicine; PCP Internal Medicine; Referring Provider Family Medicine; Visit Provider Family Medicine
DX: Z12.31 Encounter for screening mammogram for malignant neoplasm of breast (principal); Z80.3 Family history of malignant neoplasm of breast
CPT/HCPCS: 77063; 77067

== ENCOUNTER → 2020-05-18 15:25 | Outpatient (CLI) | payer MEDICARE, SELFPAY ==
--- NOTE | 2020-05-18 15:32 | BI_ITS ---
MAMMOGRAPHY - BILATERAL SCREENING REASON FOR EXAM: Female, 70 years old. Routine annual screening examination. PERTINENT HISTORY: Aunt with breast cancer. TECHNIQUE: Digital bilateral breast jed (3D mammographic acquisition) in the CC and MLO projections. 2-D mediolateral oblique (MLO) and craniocaudad (CC) views of both breasts were obtained. CAD: Full Field Digital Mammography with Computer Added Detection was performed. COMPARISON: Comparison is made with prior study dated 03/27/2019 and 12/14/2017. FINDINGS: Breast Composition: The breasts are heterogeneously dense, which may obscure small masses. There are no dominant masses or suspicious calcifications. No other significant abnormalities are identified. There has been no significant change since the prior study. BI/SCRN MAMM (CAD)W/JED BILAT IMPRESSION: Stable bilateral screening mammogram. Yearly follow-up mammogram recommended. (A) ASSESSMENT CATEGORY: BIRADS Category 1: Negative. A letter regarding these results will be sent to the patient by the facility within 30 days. Approximately 10% of breast cancers are not detected by mammography. A normal mammogram should not delay biopsy of a clinically suspicious abnormality. [id number] Electronically Signed: Siddhartha Peters MD at 8:34 EST , Service support ,
== END ==
PROVIDERS: PCP Internal Medicine; Referring Provider Family Medicine; Visit Provider Family Medicine
DX: Z12.31 Encounter for screening mammogram for malignant neoplasm of breast (principal); Z80.3 Family history of malignant neoplasm of breast
CPT/HCPCS: 77063; 77067

== ENCOUNTER 2021-05-26 10:27 | Outpatient (CLI) | payer MEDICARE, SELFPAY ==
--- NOTE | 2021-05-26 10:34 | BI_ITS ---
MAMMOGRAPHY - BILATERAL SCREENING REASON FOR EXAM: Female, 71 years old. Routine annual screening examination. PERTINENT HISTORY: Aunt with breast cancer. TECHNIQUE: Digital bilateral breast jed (3D mammographic acquisition) in the CC and MLO projections. 2-D mediolateral oblique (MLO) and craniocaudad (CC) views of both breasts were obtained. CAD: Full Field Digital Mammography with Computer Added Detection was performed. COMPARISON: Comparison is made with prior study dated 05/18/2020 and 03/27/2019. FINDINGS: Breast Composition: The breasts are heterogeneously dense, which may obscure small masses. There are no dominant masses or suspicious calcifications. No other significant abnormalities are identified. There has been no significant change since the prior study. BI/SCRN MAMM (CAD)W/JED BILAT IMPRESSION: Stable bilateral screening mammogram. Yearly follow-up mammogram recommended. (A) ASSESSMENT CATEGORY: BIRADS Category 1: Negative. A letter regarding these results will be sent to the patient by the facility within 30 days. Approximately 10% of breast cancers are not detected by mammography. A normal mammogram should not delay biopsy of a clinically suspicious abnormality. [id number] Electronically Signed: Siddhartha Peters MD at 11:55 EST ,
== END 2021-05-26 23:59 | disposition home or self-care (01) ==
PROVIDERS: PCP Family Medicine; Referring Provider Family Medicine; Visit Provider Family Medicine
DX: Z12.31 Encounter for screening mammogram for malignant neoplasm of breast (principal)
CPT/HCPCS: 77063; 77067

== ENCOUNTER → 2022-09-04 | Outpatient (CLI) | payer MEDICARE, SELFPAY ==
--- NOTE | 2022-09-04 12:51 | BI_ITS ---
MAMMOGRAPHY - BILATERAL SCREENING REASON FOR EXAM: Female, 72 years old. Routine annual screening examination. PERTINENT HISTORY: Aunt with breast cancer. TECHNIQUE: Digital bilateral breast jed (3D mammographic acquisition) in the CC and MLO projections. 2-D mediolateral oblique (MLO) and craniocaudad (CC) views of both breasts were obtained. CAD: Full Field Digital Mammography with Computer Added Detection was performed. COMPARISON: Mammogram from May 26, 2021, May 18, 2020. FINDINGS: Breast Composition: The breasts are heterogeneously dense, which may obscure small masses. There are no dominant masses or suspicious calcifications. No other significant abnormalities are identified. There has been no significant change since the prior study. BI/SCRN MAMM (CAD)W/JED BILAT IMPRESSION: Stable bilateral screening mammogram. Yearly follow-up mammogram recommended. (A) ASSESSMENT CATEGORY: BIRADS Category 1: Negative. A letter regarding these results will be sent to the patient by the facility within 30 days. Approximately 10% of breast cancers are not detected by mammography. A normal mammogram should not delay biopsy of a clinically suspicious abnormality. Electronically Signed: Carlos Manuel Damico MD at 8:43 EDT ,
== END | disposition home or self-care (01) ==
LOC: OPBI 12:49
PROVIDERS: PCP Family Medicine; Referring Provider Family Medicine; Visit Provider Family Medicine
DX: Z12.31 Encounter for screening mammogram for malignant neoplasm of breast (principal)
CPT/HCPCS: 77063; 77067

== ENCOUNTER → 2023-09-27 | Outpatient (CLI) | payer MEDICARE, SELFPAY ==
--- NOTE | 2023-09-27 08:19 | BI_ITS ---
MAMMOGRAPHY - BILATERAL SCREENING REASON FOR EXAM: Female, 73 years old. Routine annual screening examination. PERTINENT HISTORY: Aunt with breast cancer. TECHNIQUE: Digital bilateral breast jed (3D mammographic acquisition) in the CC and MLO projections. 2-D mediolateral oblique (MLO) and craniocaudad (CC) views of both breasts were obtained. CAD: Full Field Digital Mammography with Computer Added Detection was performed. COMPARISON: Comparison is made with prior study September 04, 2022 and May 26, 2021. FINDINGS: Breast Composition: The breasts are heterogeneously dense, which may obscure small masses. There are no dominant masses or suspicious calcifications. No other significant abnormalities are identified. There has been no significant change since the prior study. BI/SCRN MAMM (CAD)W/JED BILAT IMPRESSION: Stable bilateral screening mammogram. Yearly follow-up mammogram recommended. (A) ASSESSMENT CATEGORY: BIRADS Category 1: Negative. A letter regarding these results will be sent to the patient by the facility within 30 days. Approximately 10% of breast cancers are not detected by mammography. A normal mammogram should not delay biopsy of a clinically suspicious abnormality. [id number] Electronically Signed: Siddhartha Peters MD at 9:10 EDT ,
== END | disposition home or self-care (01) ==
LOC: OPBI 08:17
PROVIDERS: PCP Family Medicine; Referring Provider Family Medicine; Visit Provider Family Medicine
DX: Z12.31 Encounter for screening mammogram for malignant neoplasm of breast (principal); Z80.3 Family history of malignant neoplasm of breast
CPT/HCPCS: 77063; 77067

== ENCOUNTER 2024-02-16 09:11 | Inpatient (IN) | payer MEDICARE, SELFPAY ==
[2024-02-16 09:12] VITALS: BP 117/71; PULSE 88; RESP 18; TEMP 36.7; O2SAT 99; BMI 22.7
[2024-02-16 10:17] LABS: Absolute Lymphocyte Count 0.41 X10^3/uL (0.83-4.51); Absolute Neutrophil Count 9.1 X10^3/uL (2.0-7.7); Basophil# 0.02 X10^3/uL; Basophil% 0.2 % (0-1); Hematocrit 29.8 % (37-47); Hemoglobin 9.7 g/dL (12.0-15.0); Lymphocyte # 0.41 X10^3/ul (0.83-4.51); Mean Corp Hgb Conc 32.6 g/dL (32-36); Mean Corpuscular Hgb 30.1 pg (27.0-32.0); Mean Corpuscular Volume 92.5 fL (81-99); Mean Platelet Vol. 9.5 fl (6.2-12.0); Monocyte# 0.69 X10^3/uL; Monocyte% 6.7 % (0-10); NRBC Flagged by Analyzer 0 % (0-5); Neutrophil # 9.09 X10^3/uL (2.7-7.7); Neutrophil % 88.8 % (47-70); POSITIVE DIFFERENTIAL YES; Platelet Count 222 K/mm3 (150-450); RBC Distribution Width SD 47.3 fl (35.1-43.9); Red Blood Count 3.22 M/mm3 (4.2-5.4); White Blood Count 10.2 K/mm3 (4.4-11.0)
[2024-02-16 10:35] LABS: Anion Gap 6 (5-15); BUN 13 mg/dL (7-18); BUN/Creat Ratio 18.9 RATIO (10-20); CPK Total, Creatine Kinase 716 U/L (26-192); Calcium,Total 8.7 mg/dL (8.5-10.1); Chloride 110 mmol/L (98-107); Creatinine, Serum 0.69 mg/dL (0.55-1.02); EST Glomerular Filtration Rate 89 mL/min (>60); Est Glom Filt Rate - Afr Amer 108 mL/min (>60); Estimated Creatinine Clearance 63.18 ml/min; Glucose 116 mg/dL (74-106); Potassium 3.6 mmol/L (3.5-5.1); Sodium Level 140 mmol/L (136-145)
[2024-02-16 11:11] VITALS: BP 133/61
[2024-02-16 13:00] VITALS: BP 125/68; PULSE 79; RESP 16; O2SAT 98
[2024-02-16 14:25] VITALS: RESP 18; BMI 22.7
[2024-02-16 14:31] VITALS: BP 121/70; PULSE 84; RESP 18; TEMP 36.3; O2SAT 99
[2024-02-16] MEDS: 0.9% Normal Saline (1000mL) 1,000 ML 150 ML IV (15:56)
[2024-02-16 19:06] LABS: Mucous, Urine 0 SEEN /hpf (<or=2+)
[2024-02-16 19:07] LABS: Color, Urine Yellow (Yellow); Glucose, Dipstick Normal (Normal); Leukocyte Esterase-Dipstick 500 /ul (Negative); Nitrite-Dipstick Negative (Negative); Occult Blood-Urine 150 /ul (Negative); Protein-Dipstick 30 mg/dl (Negative); Specific Gravity, Urine 1.025 (1.002-1.030); Urine Bilirubin Dipstick Negative (Negative); Urine Clarity Sl. Cloudy (Clear); Urine Urobilinogen Normal (Normal)
[2024-02-16 19:14] LABS: Ketone-Dipstick 150 mg/dl (Negative)
[2024-02-16 19:15] LABS: Bacteria RARE /hpf (None Seen); Red Blood Cells-Urine 0-5 SEEN /hpf (0-5); Squamous Epithelial Cells - UA 0-5 SEEN /hpf (5-10); White Blood Cells 5-10 SEEN /hpf (0-5)
[2024-02-16 20:41] VITALS: BP 112/57; PULSE 91; RESP 18; TEMP 37; O2SAT 100
[2024-02-16] MEDS: Acetaminophen 500 MG Tablet 1000 MG PO (20:43)
[2024-02-17] VITALS (15 sets, daily range): BP systolic 90–125; BP diastolic 49–76; PULSE 84–90; RESP 16–18; TEMP 36.1–37.2; O2SAT 94–100; BMI 22.7
[2024-02-17 06:10] LABS: Anion Gap 4 (5-15); BUN 10 mg/dL (7-18); BUN/Creat Ratio 18.7 RATIO (10-20); CPK Total, Creatine Kinase 411 U/L (26-192); Calcium,Total 8.2 mg/dL (8.5-10.1); Chloride 111 mmol/L (98-107); Creatinine, Serum 0.54 mg/dL (0.55-1.02); EST Glomerular Filtration Rate 119 mL/min (>60); Est Glom Filt Rate - Afr Amer 144 mL/min (>60); Estimated Creatinine Clearance 63.18 ml/min; Glucose 105 mg/dL (74-106); Potassium 3.4 mmol/L (3.5-5.1); Sodium Level 139 mmol/L (136-145)
[2024-02-17] MEDS: Cefazolin 2 GM in 0.9% Normal Saline (100mL Bag) 100 ML IV (08:39)
[2024-02-17] MEDS: TRANEXAMIC ACID 2,000 MG, 0.9% Normal Saline (100mL Bag) 100 ML OPERA.SITE (11:15)
[2024-02-17] MEDS: JPS (Morphine 10mg/ml) OPERA.SITE (11:19)
[2024-02-17 14:13] LABS: Ferritin 68 ng/mL (8-252); Iron 18 ug/dL (50-170); Iron Binding Capacity,Total 243 ug/dL (250-450); PERCENT IRON SATURATION 7.4 % (15.0-55.0)
[2024-02-17] MEDS: Acetaminophen 500 MG Tablet 1000 MG PO ×2 (15:04→21:19)
[2024-02-17] MEDS: oxyCODONE 5 MG Tablet PO (15:04)
[2024-02-17] MEDS: PARoxetine CR 12.5 MG Tablet 25 MG PO (15:05)
[2024-02-17] MEDS: Cefazolin 1 GM/50 ML BAG IV (16:56)
[2024-02-17] MEDS: Senna/Docusate Sodium 1 Tablet 2 TABLET PO (21:19)
[2024-02-18] VITALS (17 sets, daily range): BP systolic 86–121; BP diastolic 49–90; PULSE 68–98; RESP 16–18; TEMP 36.4–37.7; O2SAT 95–100
[2024-02-18] MEDS: Cefazolin 1 GM/50 ML BAG IV (00:57)
[2024-02-18] MEDS: 0.9% Normal Saline (500mL Bag) 500 ML 999 ML IV (01:54)
[2024-02-18] MEDS: Acetaminophen 500 MG Tablet 1000 MG PO ×3 (05:17→23:01)
[2024-02-18] MEDS: Rivaroxaban 10 MG Tablet PO (05:19)
[2024-02-18] MEDS: Alendronate Sodium 70 MG Tablet PO (05:47)
[2024-02-18] MEDS: 0.9% Saline Lock 10 ML Syringe IV ×3 (05:49→20:03)
[2024-02-18] MEDS: Ondansetron 4 MG/2 ML Vial IV (06:03)
[2024-02-18] MEDS: 0.9% Normal Saline (250mL Bag) 250 ML 999 ML IV (06:25)
[2024-02-18 06:57] LABS: Absolute Lymphocyte Count 1.23 X10^3/uL (0.83-4.51); Absolute Neutrophil Count 4.7 X10^3/uL (2.0-7.7); Basophil# 0.02 X10^3/uL; Basophil% 0.3 % (0-1); Eosinophil# 0.03 X10^3/uL; Eosinophils% 0.4 % (0-5); Hematocrit 19.6 % (37-47); Hemoglobin 6.5 g/dL (12.0-15.0); Lymphocyte # 1.23 X10^3/ul (0.83-4.51); Lymphocyte % 18.2 % (19-41); Mean Corp Hgb Conc 33.2 g/dL (32-36); Mean Corpuscular Hgb 30.8 pg (27.0-32.0); Mean Corpuscular Volume 92.9 fL (81-99); Monocyte# 0.77 X10^3/uL; Monocyte% 11.4 % (0-10); NRBC Flagged by Analyzer 0 % (0-5); Neutrophil # 4.69 X10^3/uL (2.7-7.7); Neutrophil % 69.3 % (47-70); Platelet Count 200 K/mm3 (150-450); RBC Distribution Width CV 13.7 % (11.6-14.6); RBC Distribution Width SD 46.5 fl (35.1-43.9); Red Blood Count 2.11 M/mm3 (4.2-5.4); White Blood Count 6.8 K/mm3 (4.4-11.0)
[2024-02-18 07:14] LABS: Anion Gap 5 (5-15); BUN 13 mg/dL (7-18); BUN/Creat Ratio 17.8 RATIO (10-20); Chloride 108 mmol/L (98-107); Creatinine, Serum 0.73 mg/dL (0.55-1.02); EST Glomerular Filtration Rate 83 mL/min (>60); Est Glom Filt Rate - Afr Amer 101 mL/min (>60); Estimated Creatinine Clearance 63.18 ml/min; Glucose 110 mg/dL (74-106); Potassium 3.6 mmol/L (3.5-5.1); Sodium Level 139 mmol/L (136-145)
[2024-02-18] MEDS: Ensure Surgery 237 ML LIQUID PO ×3 (08:31→17:42)
[2024-02-18 09:26] LABS: Hemoglobin 6.7 g/dL (12.0-15.0)
[2024-02-18 10:02] LABS: Vitamin D,25 Hydroxy 41.6 ng/mL
[2024-02-18] MEDS: Doxycycline 100 MG CAPSULE PO ×2 (10:32→23:01)
[2024-02-18] MEDS: Senna/Docusate Sodium 1 Tablet 2 TABLET PO ×2 (10:33→23:00)
[2024-02-18] MEDS: PARoxetine CR 12.5 MG Tablet 25 MG PO (10:33)
[2024-02-18 22:42] LABS: Hemoglobin 7.7 g/dL (12.0-15.0)
[2024-02-19 02:16] VITALS: BP 105/52; PULSE 82; RESP 17; TEMP 36.7; O2SAT 97
[2024-02-19] MEDS: 0.9% Saline Lock 10 ML Syringe IV ×2 (02:19→11:03)
[2024-02-19] MEDS: Acetaminophen 500 MG Tablet 1000 MG PO ×3 (06:15→21:08)
[2024-02-19 06:38] VITALS: O2SAT 94
[2024-02-19 07:55] LABS: Hematocrit 23.7 % (37-47); Hemoglobin 7.6 g/dL (12.0-15.0); Mean Corp Hgb Conc 32.1 g/dL (32-36); Mean Corpuscular Hgb 28.9 pg (27.0-32.0); Mean Corpuscular Volume 90.1 fL (81-99); Platelet Count 183 K/mm3 (150-450); RBC Distribution Width CV 15.7 % (11.6-14.6); RBC Distribution Width SD 51.5 fl (35.1-43.9); Red Blood Count 2.63 M/mm3 (4.2-5.4); White Blood Count 5.6 K/mm3 (4.4-11.0)
[2024-02-19 08:19] LABS: Anion Gap 5 (5-15); BUN 13 mg/dL (7-18); BUN/Creat Ratio 24.3 RATIO (10-20); Calcium,Total 8.4 mg/dL (8.5-10.1); Chloride 110 mmol/L (98-107); Creatinine, Serum 0.54 mg/dL (0.55-1.02); EST Glomerular Filtration Rate 119 mL/min (>60); Est Glom Filt Rate - Afr Amer 144 mL/min (>60); Estimated Creatinine Clearance 63.18 ml/min; Glucose 111 mg/dL (74-106); Phosphorus 2.7 mg/dL (2.5-4.9); Potassium 3.6 mmol/L (3.5-5.1); Sodium Level 140 mmol/L (136-145)
[2024-02-19 08:45] VITALS: BP 91/60; PULSE 86; RESP 14; TEMP 36.2; O2SAT 100
[2024-02-19 08:49] VITALS: PULSE 86; RESP 14; O2SAT 100
[2024-02-19] MEDS: Ensure Surgery 237 ML LIQUID PO ×3 (09:07→19:04)
[2024-02-19] MEDS: Furosemide 40 MG/4 ML Vial IV (10:53)
[2024-02-19] MEDS: Senna/Docusate Sodium 1 Tablet 2 TABLET PO ×2 (10:54→21:08)
[2024-02-19] MEDS: PARoxetine CR 12.5 MG Tablet 25 MG PO (10:54)
[2024-02-19] MEDS: Doxycycline 100 MG CAPSULE PO ×2 (10:54→21:08)
[2024-02-19] MEDS: Rivaroxaban 10 MG Tablet PO (12:28)
[2024-02-19 15:06] VITALS: BP 98/51; PULSE 87; RESP 16; TEMP 36.8; O2SAT 100
[2024-02-19 16:25] LABS: Hemoglobin 7.9 g/dL (12.0-15.0)
[2024-02-19 21:22] VITALS: BP 110/61; PULSE 88; RESP 16; TEMP 37.1; O2SAT 99
[2024-02-20 03:08] VITALS: BP 114/66; PULSE 83; RESP 16; TEMP 36.9; O2SAT 99
[2024-02-20] MEDS: Acetaminophen 500 MG Tablet 1000 MG PO ×3 (05:11→21:13)
[2024-02-20 07:08] LABS: Hematocrit 24.3 % (37-47); Hemoglobin 7.9 g/dL (12.0-15.0); Mean Corp Hgb Conc 32.5 g/dL (32-36); Mean Corpuscular Hgb 29.4 pg (27.0-32.0); Mean Corpuscular Volume 90.3 fL (81-99); Mean Platelet Vol. 9.8 fl (6.2-12.0); Platelet Count 230 K/mm3 (150-450); RBC Distribution Width CV 15.3 % (11.6-14.6); RBC Distribution Width SD 50.5 fl (35.1-43.9); Red Blood Count 2.69 M/mm3 (4.2-5.4); White Blood Count 6.5 K/mm3 (4.4-11.0)
[2024-02-20] MEDS: Rivaroxaban 10 MG Tablet PO (07:24)
[2024-02-20 07:33] LABS: Anion Gap 4 (5-15); BUN 13 mg/dL (7-18); BUN/Creat Ratio 28.3 RATIO (10-20); Calcium,Total 8.4 mg/dL (8.5-10.1); Chloride 111 mmol/L (98-107); Creatinine, Serum 0.46 mg/dL (0.55-1.02); EST Glomerular Filtration Rate 142 mL/min (>60); Est Glom Filt Rate - Afr Amer 172 mL/min (>60); Estimated Creatinine Clearance 63.18 ml/min; Glucose 113 mg/dL (74-106); Potassium 3.6 mmol/L (3.5-5.1); Sodium Level 139 mmol/L (136-145)
[2024-02-20] MEDS: PARoxetine CR 12.5 MG Tablet 25 MG PO (07:49)
[2024-02-20] MEDS: Doxycycline 100 MG CAPSULE PO ×2 (07:49→21:14)
[2024-02-20] MEDS: Ensure Surgery 237 ML LIQUID PO ×3 (07:50→17:35)
[2024-02-20] MEDS: Senna/Docusate Sodium 1 Tablet 2 TABLET PO (07:50)
[2024-02-20 09:10] VITALS: BP 92/56; PULSE 83; RESP 18; TEMP 37; O2SAT 95
[2024-02-20 16:00] VITALS: BP 123/72; PULSE 81; RESP 18; TEMP 36.9; O2SAT 94
[2024-02-20 21:05] VITALS: BP 112/55; PULSE 87; RESP 16; TEMP 36.9; O2SAT 97
[2024-02-21 03:13] VITALS: BP 121/69; PULSE 85; RESP 16; TEMP 36.7; O2SAT 99
[2024-02-21] MEDS: Acetaminophen 500 MG Tablet 1000 MG PO ×2 (06:43→13:19)
[2024-02-21] MEDS: Rivaroxaban 10 MG Tablet PO (06:43)
[2024-02-21 07:23] LABS: Hematocrit 22.6 % (37-47); Hemoglobin 7.2 g/dL (12.0-15.0); Mean Corp Hgb Conc 31.9 g/dL (32-36); Mean Corpuscular Hgb 29.4 pg (27.0-32.0); Mean Corpuscular Volume 92.2 fL (81-99); Mean Platelet Vol. 9.3 fl (6.2-12.0); Platelet Count 263 K/mm3 (150-450); RBC Distribution Width SD 50.6 fl (35.1-43.9); Red Blood Count 2.45 M/mm3 (4.2-5.4); White Blood Count 5.3 K/mm3 (4.4-11.0)
[2024-02-21] MEDS: Ensure Surgery 237 ML LIQUID PO ×2 (08:16→13:20)
[2024-02-21] MEDS: PARoxetine CR 12.5 MG Tablet 25 MG PO (08:17)
[2024-02-21] MEDS: Senna/Docusate Sodium 1 Tablet 2 TABLET PO (08:17)
[2024-02-21] MEDS: Doxycycline 100 MG CAPSULE PO (08:17)
[2024-02-21] MEDS: Ferrous Sulfate 325 MG Tablet PO ×2 (08:24→13:20)
[2024-02-21] MEDS: Polyethylene Glycol 3350 17 GM PACKET PO (08:24)
[2024-02-21 09:00] VITALS: BP 137/77; PULSE 106; RESP 18; TEMP 36.8; O2SAT 99
[2024-02-21 09:21] VITALS: RESP 18
[2024-02-21 10:25] LABS: Hemoglobin 7.6 g/dL (12.0-15.0)
[2024-02-21 14:56] VITALS: BP 105/56; PULSE 88; RESP 18; TEMP 36.1; O2SAT 96
== END 2024-02-21 16:14 | disposition skilled nursing facility (03) | DRG 469 ==
LOC: ED 10:11 → MS3 16:13
PROVIDERS: Internal Medicine; Specialist; Emergency Provider Emergency Medicine; PCP Family Medicine; Visit Provider Internal Medicine
PROC: 0SR903Z Replacement of Right Hip Joint with Ceramic Synthetic Substitute, Open Approach (ICD-10-PCS; CPT 27134; principal; 2024-02-17 08:30)
DX: M97.01XA Periprosthetic fracture around internal prosthetic right hip joint, initial encounter (principal); S72.001 Fracture of unspecified part of neck of right femur; M62.82 Rhabdomyolysis; M80.051A Age-related osteoporosis with current pathological fracture, right femur, initial encounter for fracture; D62 Acute posthemorrhagic anemia; F32.A Depression, unspecified; E87.6 Hypokalemia; R62.7 Adult failure to thrive; R26.9 Unspecified abnormalities of gait and mobility; Z79.83 Long term (current) use of bisphosphonates; R53.81 Other malaise; Z79.82 Long term (current) use of aspirin; Z79.01 Long term (current) use of anticoagulants
CPT/HCPCS: 36415; 70450; 71045; 72125; 73502; 73700; 80048; 81001; 82274; 82306; 82550; 82728; 83540; 83550; 83735; 84100; 85018; 85025; 85027; 86850; 86900; 86901; 86920; 93005; 94668; 97116; 97162; 97166; 97530; 97535; 99252; 99285; C1776; J7030; J7040; J7050; P9016; A4216; G0463; J1940; J2405

== ENCOUNTER 2024-02-21 16:27 | Inpatient (IN) | payer MEDICARE, SELFPAY ==
[2024-02-21 16:32] VITALS: BP 110/50; PULSE 88; RESP 16; TEMP 36.7; O2SAT 99; BMI 25.9
[2024-02-21] MEDS: Ferrous Sulfate 325 MG Tablet PO (17:25)
--- NOTE | 2024-02-21 18:30 | PCM.HP.STD ---
HPI - General General Date of Admission: 02/21/24 Date of Service: 02/21/24 Chief Complaint: Here for rehabilitation. HPI Narrative ABBY MENDOZA, is a 74 Female who presents with followin02/16/2024 [facility] ED with fall. Fell yesterday, able to get up slowly after fall. Difficulty walking around the house. X-ray right hip negative, Chest X-ray negative, CT head negative, CT cervical spine negative. CK showed mild rhabomyolysis. 02/16/2024 Admit to [facility]. Order CT right hip to evaluate right hip pain. IV fluids, repeat CPK for rhabdomyolysis. PT/OT for debility. Patient has history right total hip replacement. CT showed right periprosthetic hip fracture. 02/17/2024 Dr. Crane performed ORIF right proximal femur fracture with plate and cable fixation. Revision right total hip replacement femoral and acetabular components. 02/18/2024 50% weight bearing right lower extremity. Xarelto 10mg daily x 2 weeks, then Aspirin 81mg twice daily x 2 weeks for dvt prophylaxis. PT/OT for SNF. Hemoglobin 6.7, Transfuse 2 units PRBC. 02/19/2024 Feels better after transfusion, Hemoglobin 7.7. Continue Xarelto for dvt prophylaxis. 02/20/2024 [facility] for SNF. 02/21/2024 Admit to TCU with debility, here for rehabilitation, strengthening, prior to discharge home alone. [facility], [facility] Medical History (Updated 02/21/24 @ 18:[address] Linden Gaona MD) Depression History of revision of total replacement of right hip joint Fracture of superior pubic ramus Fracture of inferior pubic ramus Ankle fracture Ovarian cyst Cataract Cataract Osteoporosis Home Medications ?Medication ?Instructions ?Recorded ?Last Taken ?Type paroxetine HCl 25 mg 25 mg PO DAILY depression 08/18/14 02/21/24 History tablet,extended release 24 hr (Paxil CR) calcium 500 mg (as 1 tab PO DAILY supplement 06/25/17 Unknown History carbonate)-vitamin D3 5 mcg (200 unit) tablet (Oyster Shell Calcium-Vitamin D3) alendronate 70 mg tablet 70 mg PO .QSU see physici 02/16/24 02/10/24 History acetaminophen 500 mg tablet 1,000 mg (2 x 500 mg) PO Q8 pain 02/21/24 02/21/24 Rx #0 tabs aspirin 81 mg tablet,delayed 81 mg PO DAILY Heart health #1 TAB 02/21/24 Unknown Rx release doxycycline monohydrate 100 mg 100 mg PO BID Antibiotic #1 cap 02/21/24 02/21/24 Rx capsule ferrous sulfate 325 mg (65 mg 325 mg PO TIDCM Supplement #0 tabs 02/21/24 02/21/24 Rx iron) tablet (FeroSul) nut.tx.comp. immune systm,reg 0.08 237 ml PO TIDCM supplement #0 mL 02/21/24 02/21/24 Rx gram-1.4 kcal/mL oral liquid (Ensure Surgery) oxycodone 5 mg tablet 5 mg PO Q6H PRN pain 1 day #4 tabs 02/21/24 02/17/24 Rx rivaroxaban 10 mg tablet (Xarelto) 10 mg PO DAILY@0600 Blood thinner 02/21/24 02/21/24 Rx #1 TAB sennosides 8.6 mg-docusate sodium 2 tab PO BID Stool softner #0 tabs 02/21/24 02/21/24 Rx 50 mg tablet (Stimulant Laxative Plus) Allergy/AdvReac Type Severity Reaction Status Date / Time No Known Allergies Allergy Verified 06/23/17 16:23 Surgical History History of ankle surgery History of appendectomy History of right hip replacement Social History (Updated 02/21/24 @ 18:[address] Linden Gaona MD) household members: none Smoking Status: Never smoker alcohol intake: never substance use type: does not use ROS Constitutional Constitutional: Denies chills, fever(s) or weight gain ENT HEENT: Denies headache(s), nasal congestion or nasal discharge Cardiovascular Cardiovascular: Denies chest pain or palpitations Respiratory/Chest Respiratory/Chest: Denies cough, excessive phlegm production or shortness of breath with exertion Gastrointestinal Gastrointestinal: Denies abdominal pain, nausea or vomiting Genitourinary Genitourinary: Denies dysuria Musculoskeletal Musculoskeletal: Denies joint pain or joint swelling Integumentary Integumentary: Denies rash or wounds Neurologic Neurologic: Denies focal weakness, numbness or tingling Psychiatric Psychiatric: Denies anxiety, auditory hallucinations, depression, homicidal ideation or suicidal ideation Vital Signs Vital Signs Vital Signs: 02/21/24 16:32 02/21/24 16:32 Temperature 98.0 F Temperature Source Temporal Pulse Rate 88 Pulse Rhythm Regular Pulse Strength Normal (2+) Respiratory Rate 16 16 Respiratory Effort Normal Non-Labored Respiratory Depth Normal Respiratory Pattern Normal Blood Pressure 110/50 L Blood Pressure Mean 70 Blood Pressure Source Monitor Blood Pressure Position Semi-Fowlers Blood Pressure Location Left Arm Pulse Ox 99 99 Oxygen Delivery Method Room Air Room Air Weight Weight: 77.196 kg Body Mass Index (BMI) 25.9 Physical Exam Const alert General Appearance: cooperative HEENT normocephalic Eyes PERRL and EOMs intact bilaterally Neck supple, no JVD and no carotid bruits Resp normal respiratory effort, normal air movement and clear to auscultation bilaterally Cardio regular rate and regular rhythm GI normal to inspection, nondistended, normoactive bowel sounds, non-tender and non-distended Extremity normal capillary refill General Extremity: Negative for edema Skin no rashes or lesions noted General Skin Exam: no breakdown Psych affect normal Appearance: appropriate Assessment & Plan Assessment/Plan (1) Debility: (2) Periprosthetic fracture around internal prosthetic right hip joint: (3) Rhabdomyolysis: (4) Postoperative anemia: (5) Depression: (6) Osteoporosis: PLAN: Plan 74 year old female with below past medical history hospitalized for right prosthetic hip fracture, underwent ORIF right proximal femur fracture with plate and cable fixation, revision right total hip replacement femoral and acetabular components 02/17/[address] Crane, postoperative course complicated by anemia requiring transfusion, admitted to TCU with debility, here for rehabilitation, strengthening, prior to discharge home alone. Debility - PT/OT. Pain - Tylenol 1000mg q8, Tramadol 50mg q6 prn pain (1-5), Oxycodone 5mg q4 prn pain (6-10). Bowel - senna/colace 2 tablets bid, Magnesium citrate 300mL po daily prn, Dulcolax 10mg pr daily prn. Adult immunization - Administer pneumonia vaccine, covid vaccine, flu vaccine as appropriate. DVT prophylaxis - Xarelto 10mg daily x 2 weeks, then Aspirin 81mg bid x 2 weeks. Osteoporosis - Alendronate 70mg qweek. Calcium deficiency - Calcium D 1 tablet daily. ID - high risk of infection, Doxycycline 100mg bid thru 02/26/2024. Nutrition - Ensure Surgery 237mL po tidcm.. Iron deficiency anemia - Ferrous sulfate 325mg po tidcm. 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
[2024-02-21] MEDS: Senna/Docusate Sodium 1 Tablet 2 TABLET PO (20:46)
[2024-02-21] MEDS: Doxycycline 100 MG CAPSULE PO (20:47)
[2024-02-21] MEDS: Acetaminophen 500 MG Tablet 1000 MG PO (20:47)
[2024-02-21] MEDS: 0.9% Saline Lock 10 ML Syringe IV (20:50)
[2024-02-22] MEDS: Rivaroxaban 10 MG Tablet PO (05:44)
[2024-02-22] MEDS: Acetaminophen 500 MG Tablet 1000 MG PO ×3 (05:44→22:02)
[2024-02-22 05:58] LABS: Absolute Neutrophil Count 3.2 X10^3/uL (2.0-7.7); Basophil# 0.03 X10^3/uL; Basophil% 0.6 % (0-1); Eosinophil# 0.14 X10^3/uL; Eosinophils% 2.8 % (0-5); Hematocrit 22.2 % (37-47); Hemoglobin 7.1 g/dL (12.0-15.0); Mean Corpuscular Hgb 29.8 pg (27.0-32.0); Mean Corpuscular Volume 93.3 fL (81-99); Mean Platelet Vol. 9.1 fl (6.2-12.0); Monocyte# 0.61 X10^3/uL; Monocyte% 12.2 % (0-10); NRBC Flagged by Analyzer 0 % (0-5); Neutrophil # 3.17 X10^3/uL (2.7-7.7); Neutrophil % 63.6 % (47-70); Platelet Count 293 K/mm3 (150-450); RBC Distribution Width CV 15.1 % (11.6-14.6); RBC Distribution Width SD 51.3 fl (35.1-43.9); Red Blood Count 2.38 M/mm3 (4.2-5.4)
[2024-02-22 06:46] LABS: Anion Gap 2 (5-15); BUN 14 mg/dL (7-18); BUN/Creat Ratio 27.2 RATIO (10-20); Calcium,Total 8.4 mg/dL (8.5-10.1); Chloride 111 mmol/L (98-107); Creatinine, Serum 0.51 mg/dL (0.55-1.02); EST Glomerular Filtration Rate 125 mL/min (>60); Est Glom Filt Rate - Afr Amer 151 mL/min (>60); Estimated Creatinine Clearance 68.44 ml/min; Glucose 109 mg/dL (74-106); Potassium 3.8 mmol/L (3.5-5.1); Sodium Level 141 mmol/L (136-145)
[2024-02-22] MEDS: Ensure Surgery 237 ML LIQUID PO ×3 (07:53→17:06)
[2024-02-22] MEDS: Ferrous Sulfate 325 MG Tablet PO ×3 (07:53→17:06)
[2024-02-22] MEDS: Doxycycline 100 MG CAPSULE PO ×2 (07:53→22:02)
[2024-02-22] MEDS: PARoxetine CR 12.5 MG Tablet 25 MG PO (07:54)
[2024-02-22] MEDS: Calcium Carb/Vitamin D 1 TABLET Tablet PO (07:54)
[2024-02-22] MEDS: Senna/Docusate Sodium 1 Tablet 2 TABLET PO ×2 (07:55→22:02)
--- NOTE | 2024-02-22 10:06 | CASEMGMT ---
Social Work SW lmet with pt to complete initial assessment. Introduced self and role of SW. SW verified pt contacts. Pt confirmed code status as DNRCCA, no intubation. Pt has a copy of living will and HCPOA naming her brother Boni Peguero on file at [facility]. SW educated pt to [facility] benefit and that NRD is 02/26 and continued stay is not guaranteed with each review. Pt lives at home alone and has been independent with all ADLs and IADLS. Pt's goal is to return home and to previous independent lifestyle. LIDIA willl continue to follow for DC planning. AVANI Riley
[2024-02-22] MEDS: Tuberculin,Purif.prot.deriv. 50 TU/ML Vial 0.1 ML ID (12:09)
[2024-02-22 13:39] VITALS: BP 105/58; PULSE 84; RESP 16; TEMP 36; O2SAT 100
--- NOTE | 2024-02-22 13:39 | NURSING ---
Senior Librarian Note; Activity Asset: Victor Hugo Borden prefers to be called Chacha. Chacha is independent in her choice of daily activities. Her brother and amish family will visit and bring her items she may need. She has a smartphone she stated she uses for everything from tv to games to texting and talking. She welcomes visit from the treasury specialist and therapy dog when available. Staff will encourage social activities, remind her of weekly activities and respect her right to say no.
[2024-02-22 23:51] VITALS: PULSE 90; RESP 16; O2SAT 100
[2024-02-23] VITALS (9 sets, daily range): BP systolic 99–111; BP diastolic 51–62; PULSE 67–87; RESP 16–19; TEMP 36.7–37.3; O2SAT 98–100
[2024-02-23] MEDS: Acetaminophen 500 MG Tablet 1000 MG PO ×3 (05:45→20:59)
[2024-02-23] MEDS: 0.9% Saline Lock 10 ML Syringe IV ×2 (05:47→15:38)
[2024-02-23] MEDS: Ferrous Sulfate 325 MG Tablet PO ×3 (08:57→19:27)
[2024-02-23] MEDS: Senna/Docusate Sodium 1 Tablet 2 TABLET PO ×2 (08:57→20:59)
[2024-02-23] MEDS: Doxycycline 100 MG CAPSULE PO ×2 (08:57→20:59)
[2024-02-23] MEDS: Calcium Carb/Vitamin D 1 TABLET Tablet PO (08:58)
[2024-02-23] MEDS: PARoxetine CR 12.5 MG Tablet 25 MG PO (08:58)
--- NOTE | 2024-02-23 11:35 | NURSING ---
Addendum entered by Mendy eTna 02/23/24 19:23: Pt returns to unit after blood transfusion @1915. Vitals: bp-101/59, p-84, r-18, t-98.4, ip89-104% RA. Lungs clear, pt denies pain, reports she ate supper over on [employer]. Visitors at bedside. Addendum entered by Grace Sarkar 02/23/24 12:40: Patient left unit at 1135 for blood transfusion. Original Note: Report called to Ursula, [facility].
[2024-02-23] MEDS: Furosemide 20 MG/2 ML VIAL IV (15:38)
[2024-02-24] MEDS: Alendronate Sodium 70 MG Tablet PO (05:57)
[2024-02-24] MEDS: Acetaminophen 500 MG Tablet 1000 MG PO ×3 (05:57→20:34)
[2024-02-24] MEDS: Senna/Docusate Sodium 1 Tablet 2 TABLET PO (07:58)
[2024-02-24] MEDS: Ferrous Sulfate 325 MG Tablet PO ×3 (07:58→16:58)
[2024-02-24] MEDS: Calcium Carb/Vitamin D 1 TABLET Tablet PO (07:59)
[2024-02-24] MEDS: PARoxetine CR 12.5 MG Tablet 25 MG PO (07:59)
[2024-02-24] MEDS: Doxycycline 100 MG CAPSULE PO ×2 (07:59→20:35)
[2024-02-24 08:07] VITALS: BP 93/56; PULSE 83; O2SAT 93
--- NOTE | 2024-02-24 10:09 | PCM.PN.DRR ---
Documented by User: Cristian Nick 02/24/24 10:23 TCU RX Drug Regimen Review Subjective/Objective Subjective/Objective Subjective: TCU admission note. 74 year old female with below past medical history hospitalized for right prosthetic hip fracture, underwent ORIF right proximal femur fracture with plate and cable fixation, revision right total hip replacement femoral and acetabular components 02/17/[address] Crane, postoperative course complicated by anemia requiring transfusion, admitted to TCU with debility, here for rehabilitation, strengthening, prior to discharge home alone. Objective: Allergies No Known Allergies Allergy (Verified 06/23/17 16:23) Current Medications Generic Name Dose Route Start Last Admin Trade Name Freq PRN Reason Stop Dose Admin Acetaminophen 1,000 mg 02/21/24 22:00 02/24/24 05:57 Acetaminophen 500 Mg Tablet PO 1,000 mg Q8 JUDITH Administration Alendronate Sodium 70 mg 02/24/24 06:00 02/24/24 05:57 Alendronate Sodium 70 Mg Tablet PO 70 mg Null@0600 JUDITH Administration Aspirin 81 mg 03/03/24 22:00 Aspirin E.C. 81 Mg Tablet PO 03/17/24 22:01 BID JUDITH Bisacodyl 10 mg 02/21/24 16:40 Bisacodyl 10 Mg Suppository RC DAILY PRN PRN Constipation Calcium/Vitamin D 1 tablet 02/22/24 10:00 02/24/24 07:59 Calcium Carb/Vitamin D 1 Tablet Tablet PO 1 tablet DAILY JUDITH Administration Doxycycline Monohydrate 100 mg 02/21/24 22:00 02/24/24 07:59 Doxycycline 100 Mg Capsule PO 02/26/24 22:01 100 mg BID JUDITH Administration Enteral Nutritional Formula 237 ml 02/21/24 17:45 02/24/24 07:58 Ensure Surgery 237 Ml Liquid PO Not Given TIDCM [facility] Ferrous Sulfate 325 mg 02/21/24 17:45 02/24/24 07:58 Ferrous Sulfate 325 Mg Tablet PO 325 mg TIDCM JUDITH Administration Magnesium Citrate 300 ml 02/21/24 19:02 Magnesium Citrate 300 Ml PO DAILY PRN Constipation Oxycodone HCl 5 mg 02/21/24 19:03 Oxycodone 5 Mg Tablet PO Q4H PRN PRN Pain Score 6-10 or Pre PT/OT Paroxetine HCl 25 mg 02/22/24 10:00 02/24/24 07:59 Paroxetine Cr 12.5 Mg Tablet PO 25 mg DAILY JUDITH Administration Rivaroxaban 10 mg 02/22/24 06:00 02/22/24 05:44 Rivaroxaban 10 Mg Tablet PO 03/03/24 06:00 10 mg DAILY@0600 JUDITH Administration Senna/Docusate Sodium 2 tablet 02/21/24 22:00 02/24/24 07:58 Senna/Docusate Sodium 1 Tablet PO 2 tablet BID JUDITH Administration Sodium Chloride 10 - 40 ml 02/21/24 16:41 02/23/24 15:38 0.9% Saline Lock 10 Ml Syringe IV 10 ml UD PRN Administration SALINE FLUSH Tramadol HCl 50 mg 02/21/24 19:02 Tramadol 50 Mg Tablet PO Q6H PRN PRN Pain Score 1-5 or Pre PT/OT Tuberculin PPD 0.1 ml 02/29/24 10:00 Tuberculin,Purif.Prot.Deriv. 50 Tu/Ml Vial ID 02/29/24 10:01 X1 ONE Problem List Osteoporosis (Acute) Depression (Acute) Postoperative anemia (Acute) Periprosthetic fracture around internal prosthetic right hip joint (Acute) Debility (Acute) Rhabdomyolysis (Acute) Vital Signs Temp Pulse Resp BP Pulse Ox O2 Del Method 98.3 F 83 18 93/56 L 93 Room Air 02/23/24 18:36 02/24/24 08:07 02/23/24 18:36 02/24/24 08:07 02/24/24 08:07 02/24/24 08:07 Oxygen Delivery Method Room Air Weight: 77.196 kg Body Mass Index (BMI) 25.9 Sodium 141 mmol/L (136-145) 02/22/24 05:30 Potassium 3.8 mmol/L (3.5-5.1) 02/22/24 05:30 Chloride 111 mmol/L (98-107) H 02/22/24 05:30 Carbon Dioxide 28.0 mmol/L (21.0-32.0) 02/22/24 05:30 Anion Gap 2 (5-15) L 02/22/24 05:30 BUN 14 mg/dL (7-18) 02/22/24 05:30 Creatinine 0.51 mg/dL (0.55-1.02) L 02/22/24 05:30 Est GFR (MDRD) Af Amer 151 mL/min (>60) 02/22/24 05:30 Est GFR (MDRD) Non-Af 125 mL/min (>60) 02/22/24 05:30 BUN/Creatinine Ratio 27.2 RATIO (10-20) H 02/22/24 05:30 Glucose 109 mg/dL (74-106) H 02/22/24 05:30 Assessment/Plan: 1. Pain: acetaminophen 1000 mg PO Q8, tramadol 50 mg PO Q6H PRN pain 1-5, oxycodone 5 mg PO Q4H PRN pain 6-10. The patient has not required any PRN doses of oxycodone or tramadol so far this admission. Please continue to monitor pain levels, LFTs (no recent LFTs documented), renal function (serum creatinine = 0.51 mg/dL with creatinine clearance ~ 68 mL/min on 02/22/24), for seizures, for respiratory depression, for dizziness/drowsiness, constipation, and syncope/ataxia/falls. 2. Bowel: senna/docusate 2 tablets Po BID, magnesium citrate 300 mL PO daily PRN constipation, bisacodyl 10 mg MA daily PRN constipation. The patient has not required any PRN doses of magnesium citrate or bisacodyl so far this admission and the patients last bowel movement was 01/20/24. Please continue to monitor for bowel movements, constipation, diarrhea, and PRN medication usage. The patient does not have a documented bowel movement for 4 days, please consider administering a PRN medication for constipation. 3. DVT prophylaxis: rivaroxaban 10 mg PO daily through 03/03/24, then aspirin 81 mg PO BID through 02/26/24. Please continue to monitor for s/s of DVT such as pain/erythema/swelling in an extremity, renal function (serum creatinine = 0.51 mg/dL with creatinine clearance ~ 68 mL/min on 02/22/24), for s/s fo bleeding/excessive bruising, hemoglobin levels (Hgb = 7.1 g/dL on 02/22/24), platelet count (Plt = 293 K/mm3 on 02/22/24), and for GI distress with aspirin administration. 4. ID high risk of infection: doxycycline 100 mg PO BID through 02/26/24. Please continue to monitor for s/s of infection such as redness/swelling/pain to joint, for fevers (temp = 98.3 F on 02/23/24), chills, WBC count (WBC = 5.0 K/mm3 on 02/22/24), for GI distress with doxycycline administration, and for sun sensitivity. 5. Osteoporosis: alendronate 70 mg every week. Please continue to monitor for fractures, bone/jaw pain, calcium levels (Ca = 8.4 mg/dL on 02/22/24), phosphorus levels (Phos = 2.7 mg/dL on 02/19/24), renal function (serum creatinine = 0.51 mg/dL with creatinine clearance ~ 68 mL/min on 02/22/24), and for GI distress with alendronate administration. 6. Iron deficiency anemia: ferrous sulfate 325 mg PO TID with meals. Please continue to monitor iron levels (iron = 18 ug/dL on 02/17/24), ferritin levels (ferritin = 68 ng/mL on 02/17/24), hemoglobin levels (Hgb = 7.1 g/dL on 02/22/24), and for GI distress with iron administration. 7. Calcium deficiency: calcium carbonate/vitamin D 1 tablet PO daily. Please continue to monitor calcium levels (Ca = 8.4 mg/dL on 02/22/24). 8. Nutrition: ensure surgery 237 mL PO TID with meals. Please continue to monitor overall nutritional status. Assessment/Plan for indications treated with psychotropic medications: 1. Depression: paroxetine 25 mg PO daily. Please see provider note regarding stable chronic long-term therapy GDR not recommended. Please continue to monitor for depression, for SI, sodium levels (Na = 141 mmol/L on 02/22/24), for s/s of serotonin syndrome, diaphoresis, diarrhea, constipation, nausea and dry mouth. Medical chart and medication regimen reviewed. The following medication irregularities or issues were identified: 1. Bowel: senna/docusate 2 tablets Po BID, magnesium citrate 300 mL PO daily PRN constipation, bisacodyl 10 mg MA daily PRN constipation. The patient does not have a documented bowel movement for 4 days, please consider administering a PRN medication for constipation. Date Date of Note: 02/24/24 Documented by User: Dr. Linden Gaona MD 02/24/24 14:54 TCU RX Drug Regimen Review Provider Comments Provider responsibility Provider Comments to Recommendations by Pharmacy Agree
--- NOTE | 2024-02-24 11:08 | NURSING ---
Call placed to Dr. Gaona, update given on + occult stool. New order to consult Dr. Arthur. JUAN PABLO.
--- NOTE | 2024-02-24 11:41 | NURSING ---
Addendum entered by Sergio Montes 02/24/24 15:05: AWARE AND STATED TO CONSULT . Original Note: PT POSITIVE FOR BLOOD IN STOOL. WILL NOTIFY . PT REFUSING THIGH HIGH SUSAN HOSE,STATING I DONT LIKE THEM ,VERY UNCOMFORTABLE. PT AGREED TO USE KNEE HIGH SUSAN HOSE.
--- NOTE | 2024-02-24 13:14 | NS ---
Phone Call: received phone call from Sandra/nursing on TCU requesting d/c of PO ensure surgery and adding PO ensure plus HP instead per pt preference. Will make medpass adjustments per pt request. Herbie Montero MS, RD, LD
[2024-02-24 13:33] VITALS: RESP 18; TEMP 36.8
[2024-02-24] MEDS: Ensure Plus High Protein 120 ML LIQUID PO ×2 (16:57→20:32)
[2024-02-24 18:24] LABS: Hematocrit 33.2 % (37-47); Hemoglobin 10.7 g/dL (12.0-15.0)
[2024-02-25] MEDS: Acetaminophen 500 MG Tablet 1000 MG PO ×3 (04:00→22:33)
[2024-02-25] MEDS: Ensure Plus High Protein 120 ML LIQUID PO ×3 (04:01→17:07)
[2024-02-25] MEDS: PARoxetine CR 12.5 MG Tablet 25 MG PO (09:05)
[2024-02-25] MEDS: Ferrous Sulfate 325 MG Tablet PO ×3 (09:05→17:07)
[2024-02-25] MEDS: Senna/Docusate Sodium 1 Tablet 2 TABLET PO ×2 (09:05→22:34)
[2024-02-25] MEDS: Calcium Carb/Vitamin D 1 TABLET Tablet PO (09:05)
[2024-02-25] MEDS: Doxycycline 100 MG CAPSULE PO ×2 (09:05→22:33)
[2024-02-25 09:30] VITALS: BP 119/59; PULSE 82; RESP 18; TEMP 36.3; O2SAT 99
--- NOTE | 2024-02-25 10:49 | NURSING ---
Spoke with Lynnette at Dr Crane's office. TCU can remove sutures after 2 weeks post-op and pt may shower.
--- NOTE | 2024-02-25 17:43 | EX.PCM.CON.G ---
HPI Consult Data Date of Consult: 02/25/24 HPI Narrative Reason for Consultation: Anemia HPI Narrative: ABBY MENDOZA, is a 74-year-old white female who had a mechanical fall while handing out [id number] candy. CBC showed anemia with hemoglobin of 9.7 (baseline hemoglobin is unclear however patient did have lab here in 2018 at which time her hemoglobin was 10.1. Chemistry panel was overtly unremarkable. Glucose was 116 nonfasting. Initial CK was noted to be 716 and on repeat was 411. UA was performed and was consistent with mild rhabdomyolysis. CT of the brain showed no acute intercranial process with no significant change since previous exam and stable dilated ventricles unchanged from previous. CT of the cervical spine was unremarkable. Chest x-ray showed no acute cardiopulmonary process. Initial hip and pelvic x-ray was unremarkable but with persistent pain CT of the lower extremity was performed and demonstrated an acute periprosthetic fracture of the right femur involving the greater trochanter and extending into the femoral shaft below the level of the femoral portion of the hip prosthesis. She was admitted to the medical floor hydrated and consultation to orthopedic surgery was placed. She was taken to the OR on 01/17/2024 where a revision of the right total hip replacement femoral and acetabular component was performed. Postoperatively she will be on Xarelto 10 mg daily x 2 weeks followed by aspirin 81 mg daily for 2 weeks. Doxycycline 100 mg p.o. twice daily for 2 weeks and patient will be 50% weightbearing with no active abduction for 6 weeks and the patient will be on 3 months of posterior hip precautions. Weightbearing is to be progressed by the orthopedic surgeon after follow-up imaging in the office in 2 weeks. Postoperatively she was anemic however she did have fairly significant blood loss intraoperatively with 750cc she was also +2 to 3 L as well. It was suspected that it was related to blood loss and hemodilution. She was given 2 units of packed red blood cells and her hemoglobin has since stabilized. She was started on oral iron since we do know she lost blood while hospitalized with surgery. She will need to continue bowel regimen as she has been using narcotics for pain and with the initiation of the iron. She has been on iron therapy and was transferred to transitional care unit. Her hemoglobin did drop down to 7.1 and she received blood transfusion and her current hemoglobin is up to 10.1. [facility] Medical History (Updated 02/21/24 @ 18:[address] Linden Gaona MD) Depression History of revision of total replacement of right hip joint Fracture of superior pubic ramus Fracture of inferior pubic ramus Ankle fracture Ovarian cyst Cataract Cataract Osteoporosis Home Medications ?Medication ?Instructions ?Recorded ?Last Taken ?Type paroxetine HCl 25 mg 25 mg PO DAILY depression 08/18/14 02/21/24 History tablet,extended release 24 hr (Paxil CR) calcium 500 mg (as 1 tab PO DAILY supplement 06/25/17 Unknown History carbonate)-vitamin D3 5 mcg (200 unit) tablet (Oyster Shell Calcium-Vitamin D3) alendronate 70 mg tablet 70 mg PO .QSU see physici 02/16/24 02/10/24 History acetaminophen 500 mg tablet 1,000 mg (2 x 500 mg) PO Q8 pain 02/21/24 02/21/24 Rx #0 tabs aspirin 81 mg tablet,delayed 81 mg PO DAILY Heart health #1 TAB 02/21/24 Unknown Rx release doxycycline monohydrate 100 mg 100 mg PO BID Antibiotic #1 cap 02/21/24 02/21/24 Rx capsule ferrous sulfate 325 mg (65 mg 325 mg PO TIDCM Supplement #0 tabs 02/21/24 02/21/24 Rx iron) tablet (FeroSul) nut.tx.comp. immune systm,reg 0.08 237 ml PO TIDCM supplement #0 mL 02/21/24 02/21/24 Rx gram-1.4 kcal/mL oral liquid (Ensure Surgery) oxycodone 5 mg tablet 5 mg PO Q6H PRN pain 1 day #4 tabs 02/21/24 02/17/24 Rx rivaroxaban 10 mg tablet (Xarelto) 10 mg PO DAILY@0600 Blood thinner 02/21/24 02/21/24 Rx #1 TAB sennosides 8.6 mg-docusate sodium 2 tab PO BID Stool softner #0 tabs 02/21/24 02/21/24 Rx 50 mg tablet (Stimulant Laxative Plus) Allergy/AdvReac Type Severity Reaction Status Date / Time No Known Allergies Allergy Verified 06/23/17 16:23 Surgical History History of ankle surgery History of appendectomy History of right hip replacement Social History (Updated 02/21/24 @ 18:[address] Linden Gaona MD) household members: none Smoking Status: Never smoker alcohol intake: never substance use type: does not use ROS Constitutional Constitutional: Denies chills, fever(s) or weight gain ENT HEENT: Denies headache(s), nasal congestion or nasal discharge Cardiovascular Cardiovascular: Denies chest pain or palpitations Respiratory/Chest Respiratory/Chest: Denies cough, excessive phlegm production or shortness of breath with exertion Gastrointestinal Gastrointestinal: Denies abdominal pain, nausea or vomiting Genitourinary Genitourinary: Denies dysuria Musculoskeletal Musculoskeletal: Denies joint pain or joint swelling Integumentary Integumentary: Denies rash or wounds Neurologic Neurologic: Denies focal weakness, numbness or tingling Psychiatric Psychiatric: Denies anxiety, auditory hallucinations, depression, homicidal ideation or suicidal ideation Physical Exam Const alert General Appearance: cooperative HEENT normocephalic Eyes PERRL and EOMs intact bilaterally Neck supple, no JVD and no carotid bruits Resp normal respiratory effort, normal air movement and clear to auscultation bilaterally Cardio regular rate and regular rhythm GI normal to inspection, nondistended, normoactive bowel sounds, non-tender and non-distended Extremity normal capillary refill General Extremity: Negative for edema Skin no rashes or lesions noted General Skin Exam: no breakdown Psych affect normal Appearance: appropriate Lab / Micro Data 02/24/24 18:08 02/22/24 05:30 Labs: Laboratory Results - last 24 hr 02/24/24 18:08: Hgb 10.7 L, Hct 33.2 L Assessment & Plan Assessment/Plan (1) Periprosthetic fracture around internal prosthetic right hip joint, initial encounter: (2) Rhabdomyolysis: (3) Right hip pain: (4) Debility: (5) Anemia: PLAN: Plan 74-year-old with history of osteoporosis and recent right periprosthetic hip fracture The plan is for her to be on Xarelto 10 mg daily for 2 weeks followed by aspirin 81 mg twice daily for 2 weeks with posterior hip precautions for 3 months with no active abduction for 6 weeks Her Iron studies were obtained and consistent with chronic disease. However she could have acute blood loss anemia from aspirin induced peptic ulcer disease requiring blood transfusions. She should undergo an upper endoscopy to evaluate upper GI tract and lower GI tract. She will prep for an EGD and colonoscopy tomorrow 02/26/2024 and we will plan on doing the procedures on 02/27/2024. Charges/Coding Visit Charges Inpatient E&M: 27391 [facility] Init L2
[2024-02-26] MEDS: Ensure Plus High Protein 120 ML LIQUID PO ×2 (06:43→13:01)
[2024-02-26] MEDS: Acetaminophen 500 MG Tablet 1000 MG PO ×3 (06:44→20:03)
[2024-02-26] MEDS: PARoxetine CR 12.5 MG Tablet 25 MG PO (08:07)
[2024-02-26] MEDS: Calcium Carb/Vitamin D 1 TABLET Tablet PO (08:07)
[2024-02-26] MEDS: Senna/Docusate Sodium 1 Tablet 2 TABLET PO (08:07)
[2024-02-26] MEDS: Doxycycline 100 MG CAPSULE PO ×2 (08:07→20:03)
[2024-02-26] MEDS: Ferrous Sulfate 325 MG Tablet PO ×3 (08:07→16:50)
[2024-02-26 10:14] VITALS: BMI 25.8
[2024-02-26 14:48] VITALS: BP 113/63; PULSE 82; RESP 16; TEMP 36.5; O2SAT 99
[2024-02-26] MEDS: Electrolyte Solution/Peg's 4000 ML PO (16:52)
[2024-02-26 19:53] VITALS: PULSE 74; RESP 16; O2SAT 99
--- NOTE | 2024-02-27 09:21 | CASEMGMT ---
Social Work IDT met with patient for care plan meeting. Discussed patient's progress in PT/OT/SN. Educated to [facility] insurance with [employer] 02/26 and continued stay is not guaranteed with each review. Pt's plan is to return home. SW offered resources for COMPUTER SYSTEMS SOFTWARE ENGINEER or transportation to assist with laundry that is in the pt's basement and to get to/from appts. Pt would like to use [facility] for [facility] therapy at [place]. Pt denied resources, stating the prior delinquency prevention social worker already provided them to her. SW will continue to follow for DC planning. BRITTANIE MarieW
--- NOTE | 2024-02-27 13:41 | CASEMGMT ---
Social Work SW completed BIMS () and PHQ-2 () for MDS assessment. Adenike Lujan, HORTICULTURAL AGENT ROOF SLATER
[2024-02-27 14:10] VITALS: BP 105/55; PULSE 81; RESP 18; TEMP 36.6; O2SAT 97; BMI 25.9
--- NOTE | 2024-02-27 15:43 | NURSING ---
EGD and Colonoscopy rescheduled for tomorrow, colon not cleaned out.
[2024-02-27 15:45] VITALS: BP 105/55; PULSE 81; RESP 18; TEMP 36.6; O2SAT 97
[2024-02-27] MEDS: Ferrous Sulfate 325 MG Tablet PO (16:54)
[2024-02-27] MEDS: Bisacodyl 5 MG Tablet 20 MG PO (16:57)
[2024-02-27] MEDS: Polyethylene Glycol 3350 BOWEL PREP PO (19:11)
[2024-02-27] MEDS: Senna/Docusate Sodium 1 Tablet 2 TABLET PO (20:05)
[2024-02-27] MEDS: Acetaminophen 500 MG Tablet 1000 MG PO (20:06)
[2024-02-28 08:24] VITALS: BP 108/53; PULSE 74; RESP 18; TEMP 37.1; O2SAT 98
[2024-02-28 09:48] VITALS: BP 108/53; PULSE 74; RESP 18; TEMP 37.1; O2SAT 98; BMI 25.9
--- NOTE | 2024-02-28 10:18 | NURSING ---
Addendum entered by Ivy Powell 02/28/24 10:49: DR TOMAS PLACED ENEMA'S X3 1 LITER EACH Original Note: SURGERY TECHS HERE TO TRANSFER PT BUT PT CONTINUES TO HAVE BROWN LIQUID COLOR STOOL. KEEPING PT ON FLOOR FOR NOW, WILL CHECK WITH DR TOMAS REGARDING WHETHER TO CONTINUE WITH PROCEDURES OR HOLD OFF
--- NOTE | 2024-02-28 12:35 | NURSING ---
Addendum entered by Ivy Powell 02/28/24 12:58: pt with clear liquid micro flecks of brown noted Addendum entered by Ivy Powell 02/28/24 12:47: order to administer one more 1 liter enema. Original Note: all 3 enemas given, pt having almost clear liquid with flecks of brown. Texted Dr Arthur, for further instruction.
--- NOTE | 2024-02-28 13:20 | NURSING ---
pt off unit via bed to endo
--- NOTE | 2024-02-28 16:06 | NURSING ---
pt back to floor via bed from [facility]
--- NOTE | 2024-02-28 16:25 | NURSING ---
pt notified of +covid staff member, pt will update family
[2024-02-28] MEDS: Ensure Plus High Protein 120 ML LIQUID PO ×2 (17:08→21:22)
[2024-02-28] MEDS: Acetaminophen 500 MG Tablet 1000 MG PO ×2 (17:09→21:23)
[2024-02-28] MEDS: Ferrous Sulfate 325 MG Tablet PO (17:09)
[2024-02-28] MEDS: PARoxetine CR 12.5 MG Tablet 25 MG PO (17:09)
[2024-02-28 17:43] VITALS: RESP 16
[2024-02-28] MEDS: Senna/Docusate Sodium 1 Tablet 2 TABLET PO (21:22)
[2024-02-28] MEDS: Menthol/Lanolin/Calamine/Znox 113 GM Tube 1 APPLIC TOPICAL (21:23)
[2024-02-29] MEDS: Ensure Plus High Protein 120 ML LIQUID PO ×3 (05:39→16:49)
[2024-02-29] MEDS: Acetaminophen 500 MG Tablet 1000 MG PO ×3 (05:39→20:16)
[2024-02-29 05:57] LABS: Absolute Lymphocyte Count 0.92 X10^3/uL (0.83-4.51); Absolute Neutrophil Count 4.7 X10^3/uL (2.0-7.7); Basophil# 0.04 X10^3/uL; Basophil% 0.6 % (0-1); Eosinophil# 0.07 X10^3/uL; Eosinophils% 1.1 % (0-5); Hematocrit 29.2 % (37-47); Hemoglobin 9.8 g/dL (12.0-15.0); Lymphocyte # 0.92 X10^3/ul (0.83-4.51); Lymphocyte % 14.6 % (19-41); Mean Corp Hgb Conc 33.6 g/dL (32-36); Mean Corpuscular Hgb 31.2 pg (27.0-32.0); Mean Platelet Vol. 8.8 fl (6.2-12.0); Monocyte# 0.52 X10^3/uL; Monocyte% 8.3 % (0-10); NRBC Flagged by Analyzer 0 % (0-5); Neutrophil # 4.71 X10^3/uL (2.7-7.7); Neutrophil % 74.8 % (47-70); Platelet Count 458 K/mm3 (150-450); RBC Distribution Width CV 14.4 % (11.6-14.6); RBC Distribution Width SD 48.8 fl (35.1-43.9); Red Blood Count 3.14 M/mm3 (4.2-5.4); White Blood Count 6.3 K/mm3 (4.4-11.0)
[2024-02-29 06:18] LABS: Anion Gap 5 (5-15); BUN 13 mg/dL (7-18); BUN/Creat Ratio 25.5 RATIO (10-20); Calcium,Total 8.4 mg/dL (8.5-10.1); Chloride 109 mmol/L (98-107); Creatinine, Serum 0.51 mg/dL (0.55-1.02); EST Glomerular Filtration Rate 126 mL/min (>60); Est Glom Filt Rate - Afr Amer 152 mL/min (>60); Estimated Creatinine Clearance 68.53 ml/min; Glucose 104 mg/dL (74-106); Potassium 3.8 mmol/L (3.5-5.1); Sodium Level 140 mmol/L (136-145)
[2024-02-29] MEDS: Menthol/Lanolin/Calamine/Znox 113 GM Tube 1 APPLIC TOPICAL ×2 (07:40→20:17)
[2024-02-29] MEDS: Ferrous Sulfate 325 MG Tablet PO ×3 (07:40→16:49)
[2024-02-29] MEDS: Calcium Carb/Vitamin D 1 TABLET Tablet PO (07:41)
[2024-02-29] MEDS: Senna/Docusate Sodium 1 Tablet 2 TABLET PO ×2 (07:41→20:16)
[2024-02-29 07:49] VITALS: BP 112/51; PULSE 72; RESP 16; TEMP 36.5; O2SAT 99
[2024-02-29 07:56] VITALS: PULSE 71; RESP 16; O2SAT 98
[2024-02-29] MEDS: PARoxetine CR 12.5 MG Tablet 25 MG PO (09:07)
[2024-02-29] MEDS: Tuberculin,Purif.prot.deriv. 50 TU/ML Vial 0.1 ML ID (09:07)
--- NOTE | 2024-02-29 09:10 | NURSING ---
Shirt Finisher Note; MDS for 02/28/2024 Complete
[2024-03-01] MEDS: Acetaminophen 500 MG Tablet 1000 MG PO ×3 (04:38→20:36)
[2024-03-01] MEDS: Ensure Plus High Protein 120 ML LIQUID PO ×4 (04:38→20:36)
[2024-03-01 04:40] VITALS: PULSE 68; RESP 15
[2024-03-01] MEDS: Ferrous Sulfate 325 MG Tablet PO ×3 (08:45→17:39)
[2024-03-01] MEDS: Menthol/Lanolin/Calamine/Znox 113 GM Tube 1 APPLIC TOPICAL ×2 (08:46→20:32)
[2024-03-01] MEDS: Calcium Carb/Vitamin D 1 TABLET Tablet PO (08:48)
[2024-03-01] MEDS: PARoxetine CR 12.5 MG Tablet 25 MG PO (08:48)
[2024-03-01] MEDS: Senna/Docusate Sodium 1 Tablet 2 TABLET PO ×2 (08:48→20:36)
[2024-03-01 16:00] VITALS: BP 95/54; PULSE 76; RESP 14; TEMP 36.4; O2SAT 96
[2024-03-02] MEDS: Ensure Plus High Protein 120 ML LIQUID PO ×3 (04:42→17:38)
[2024-03-02] MEDS: Alendronate Sodium 70 MG Tablet PO (04:42)
[2024-03-02] MEDS: Acetaminophen 500 MG Tablet 1000 MG PO ×3 (04:42→22:46)
[2024-03-02 07:18] LABS: Hematocrit 32.2 % (37-47); Hemoglobin 10.1 g/dL (12.0-15.0)
[2024-03-02 08:00] VITALS: BP 116/42; PULSE 75; RESP 17; TEMP 37; O2SAT 99
[2024-03-02] MEDS: Ferrous Sulfate 325 MG Tablet PO ×3 (08:03→17:38)
[2024-03-02] MEDS: Calcium Carb/Vitamin D 1 TABLET Tablet PO (08:03)
[2024-03-02] MEDS: Menthol/Lanolin/Calamine/Znox 113 GM Tube 1 APPLIC TOPICAL ×2 (08:03→22:47)
[2024-03-02] MEDS: PARoxetine CR 12.5 MG Tablet 25 MG PO (08:04)
[2024-03-02] MEDS: Senna/Docusate Sodium 1 Tablet 2 TABLET PO ×2 (08:04→22:46)
[2024-03-03] MEDS: Acetaminophen 500 MG Tablet 1000 MG PO ×3 (05:49→22:40)
[2024-03-03] MEDS: Ensure Plus High Protein 120 ML LIQUID PO ×3 (05:50→17:27)
[2024-03-03 08:27] VITALS: BP 106/62; PULSE 83; TEMP 37.4
[2024-03-03] MEDS: Ferrous Sulfate 325 MG Tablet PO ×3 (08:30→17:28)
[2024-03-03] MEDS: PARoxetine CR 12.5 MG Tablet 25 MG PO (08:30)
[2024-03-03] MEDS: Menthol/Lanolin/Calamine/Znox 113 GM Tube 1 APPLIC TOPICAL (08:30)
[2024-03-03] MEDS: Calcium Carb/Vitamin D 1 TABLET Tablet PO (08:30)
[2024-03-03] MEDS: Senna/Docusate Sodium 1 Tablet 2 TABLET PO ×2 (08:31→22:40)
[2024-03-03] MEDS: Aspirin E.C. 81 MG Tablet PO (22:42)
[2024-03-04] MEDS: Ensure Plus High Protein 120 ML LIQUID PO ×3 (05:33→16:31)
[2024-03-04] MEDS: Acetaminophen 500 MG Tablet 1000 MG PO ×3 (05:34→21:36)
[2024-03-04] MEDS: PARoxetine CR 12.5 MG Tablet 25 MG PO (08:10)
[2024-03-04] MEDS: Calcium Carb/Vitamin D 1 TABLET Tablet PO (08:10)
[2024-03-04] MEDS: Senna/Docusate Sodium 1 Tablet 2 TABLET PO (08:10)
[2024-03-04] MEDS: Ferrous Sulfate 325 MG Tablet PO ×3 (08:10→16:31)
[2024-03-04] MEDS: Aspirin E.C. 81 MG Tablet PO ×2 (08:10→21:35)
[2024-03-04] MEDS: Menthol/Lanolin/Calamine/Znox 113 GM Tube 1 APPLIC TOPICAL ×2 (08:10→21:35)
[2024-03-04 10:28] VITALS: BMI 25.7
[2024-03-04 11:40] VITALS: BP 107/61; PULSE 73; RESP 14; TEMP 37.4; O2SAT 100
[2024-03-05] MEDS: Ensure Plus High Protein 120 ML LIQUID PO ×3 (05:57→16:48)
[2024-03-05] MEDS: Acetaminophen 500 MG Tablet 1000 MG PO ×3 (05:57→21:25)
--- NOTE | 2024-03-05 07:09 | MDS.RN ---
Information for the MDS was obtained from review of the clinical record, interview of resident, staff, and direct observation of resident?s care.
[2024-03-05] MEDS: Calcium Carb/Vitamin D 1 TABLET Tablet PO (08:54)
[2024-03-05] MEDS: PARoxetine CR 12.5 MG Tablet 25 MG PO (08:54)
[2024-03-05] MEDS: Aspirin E.C. 81 MG Tablet PO ×2 (08:54→21:24)
[2024-03-05] MEDS: Ferrous Sulfate 325 MG Tablet PO ×3 (08:54→16:48)
[2024-03-05] MEDS: Menthol/Lanolin/Calamine/Znox 113 GM Tube 1 APPLIC TOPICAL (08:56)
--- NOTE | 2024-03-05 10:22 | CASEMGMT ---
Social Work Pt is progressing well with therapy. Insurance NRD tomorrow. SW met with pt to discuss discharge plan. Pt feels she is ready for discharge and is electing to discharge home on Sunday03/08/24. Pt will be returning home alone and states her brother will be able to provide transportation home. Therapy is recommending continuation of PT. SW provided pt with options of home health or outpatient PT. Pt electing outpatient PT at [facility] and would like to use the hospital van for transportation. Pt has been in contact with medical alert and they will come to pt's home and set this up after discharge. Pt has all needed DME, however pt stating she would like a second walker so she will not have to take it up and down the stairs. The walker pt currently has is 20+ years old. Pt is agreeable to use [employer] for a new walker. Referral to be made to [facility] for a FWW to be delivered to pt room prior to discharge and Outpatient PT at [facility] with use of the hospital van. Discharge Date: 03/08 Discharge Dispostion: Home alone, outpatient PT AVANI Riley
--- NOTE | 2024-03-05 13:45 | NURSING ---
pt off unit for appt w/family
[2024-03-05 16:00] VITALS: BP 110/55; PULSE 72; RESP 16; TEMP 36.4; O2SAT 100
--- NOTE | 2024-03-05 16:14 | NURSING ---
Pt returned from appt at [facility]. Sutures were removed and N.O. for Doppler of RLE d/t increased Swelling. Order entered.
--- NOTE | 2024-03-05 19:42 | DS.PCM_ITS ---
Providers Date of Admission: 02/21/24 Primary Care Physician: Dr. Alma Calzada, DO Consultations 02/24/24 11:07 Consult: Gastroenterology Routine Consulting Provider: [facility] Reason for Consult: postive occult stool, amenia EMERGENT Consult: No MD Notified: Yes Date Notified: 02/24/24 Time Notified: 11:07 Method of Notification: Text Reason For Visit: RIGHT HIP FRACTURE Diagnosis Discharge Diagnosis (1) Periprosthetic fracture around internal prosthetic right hip joint, initial encounter: Status: Resolved Code(s): M97.01XA - Periprosthetic fracture around internal prosthetic right hip joint, initial encounter (2) Rhabdomyolysis: Status: Resolved Code(s): M62.82 - Rhabdomyolysis (3) Right hip pain: Status: Resolved Code(s): M25.551 - Pain in right hip (4) Debility: Status: Acute Code(s): R53.81 - Other malaise (5) Anemia: Status: Acute Code(s): D64.9 - Anemia, unspecified Plan 74 year old female with below past medical history hospitalized for right prosthetic hip fracture, underwent ORIF right proximal femur fracture with plate and cable fixation, revision right total hip replacement femoral and acetabular components 02/17/[address] Crane, postoperative course complicated by anemia requiring transfusion, admitted to TCU with debility, here for rehabilitation, strengthening, prior to discharge home alone. * Debility - PT/OT. * Pain - Tylenol 1000mg q8, Tramadol 50mg q6 prn pain (1-5), Oxycodone 5mg q4 prn pain (6-10). * Bowel - senna/colace 2 tablets bid, Magnesium citrate 300mL po daily prn, Dulcolax 10mg pr daily prn. * Adult immunization - Administer pneumonia vaccine, covid vaccine, flu vaccine as appropriate. * DVT prophylaxis - Xarelto 10mg daily x 2 weeks, then Aspirin 81mg bid x 2 weeks. * Osteoporosis - Alendronate 70mg qweek. * Calcium deficiency - Calcium D 1 tablet daily. * ID - high risk of infection, Doxycycline 100mg bid thru 02/26/2024. * Nutrition - Ensure Surgery 237mL po tidcm.. * Iron deficiency anemia - Ferrous sulfate 325mg po tidcm. * Depression - Paroxetine 25mg daily, stable chronic care home use, GDR not recommended. Medications at Discharge Home Medications paroxetine HCl 25 mg tablet,extended release 24 hr (Paxil CR) 25 mg PO DAILY depression 08/18/14 calcium 500 mg (as carbonate)-vitamin D3 5 mcg (200 unit) tablet (Oyster Shell Calcium-Vitamin D3) 1 tab PO DAILY supplement 06/25/17 alendronate 70 mg tablet 70 mg PO .QSU see physici 02/16/24 acetaminophen 500 mg tablet 1,000 mg (2 x 500 mg) PO Q8 #0 tabs 03/05/24 aspirin 81 mg tablet,delayed release 81 mg PO BID 9 days #0 tabs 03/05/24 ferrous sulfate 325 mg (65 mg iron) tablet (FeroSul) 325 mg PO TIDCM 30 days #90 tabs 03/05/24 sennosides 8.6 mg-docusate sodium 50 mg tablet (Stimulant Laxative Plus) 2 tab PO BID 30 days #120 tabs 03/05/24 Hospital Course Operations - (See below.) Procedures Colonoscopy and EGD Summary of Care Provided Minutes Spent on Discharge: 35 Hospital Course: 74 year old female with below past medical history hospitalized for right prosthetic hip fracture, underwent ORIF right proximal femur fracture with plate and cable fixation, revision right total hip replacement femoral and acetabular components 02/17/[address] Crane, postoperative course complicated by anemia requiring transfusion, admitted to TCU with debility, here for rehabilitation, strengthening, prior to discharge home alone. 02/28/2024 Dr. Arthur EGD: Impressions : - Esophageal ulcer oozing blood. Treated with a heater probe. - Large hiatal hernia. - No gross lesions in the first portion of the duodenum. - No specimens collected. Recommendations : - Return patient to referring hospital for ongoing care. - Advance diet as tolerated. - Continue present medications. 02/28/2024 Dr. Arthur colonoscopy: Impressions : - The entire examined colon is normal on direct and retroflexion views. - No specimens collected. Recommendations : - Return patient to referring hospital for ongoing care. - Advance diet as tolerated. - Continue present medications. -Capsule endoscopy - No repeat colonoscopy due to age. Discharge home alone 03/08/2024, outpatient PT. Physical Exam Const alert General Appearance: cooperative HEENT normocephalic Eyes PERRL and EOMs intact bilaterally Neck supple, no JVD and no carotid bruits Resp normal respiratory effort, normal air movement and clear to auscultation bilaterally Cardio regular rate and regular rhythm GI normal to inspection, nondistended, normoactive bowel sounds, non-tender and non-distended Extremity normal capillary refill General Extremity: Negative for edema Skin no rashes or lesions noted General Skin Exam: no breakdown Psych affect normal Appearance: appropriate Weight / BMI Weight Weight: 76.657 kg Body Mass Index (BMI) 25.7 ABG / Lab / Microbiology Data 03/02/24 06:49 02/29/24 05:31 Microbiology: Microbiology 02/29/24 07:45 Nasal Secretion SARS-CoV-2 Antigen (Rapid) - Final 02/24/24 09:18 Stool Stool Occult Blood (PATTY) - Final D/C Instructions Discharge Diet: No restrictions Discharge Activity: Return to Normal Activity, May Shower and Use Walker Weight Bearing Status: Weight bearing as tolerated Call your doctor if you observe: Fever of 101 or Higher, Inability to urinate, Inability to have a bowel movement, Shortness of breath, Dizziness, Fainting spells, Swelling in the ankles, Chest pain and Uncontrolled pain DC O2, CPAP, BIPAP Needs Additional Home O2 Discharge instructions: No DC home with Oxygen: No Additional Instructions: Discharge home alone 03/08/2024, outpatient PT. Please Follow Up With: Isidoro Crane MD When: As scheduled. Meaningful Use Info Meaningful Use Meaningful Use Diagnoses (Choose all that apply): None applicable Ischemic Stroke Statin Dosing Therapy Reference: STATIN DOSE THERAPY REFERENCE: * Patients > 75 years receive moderate or high dose statin therapy. * Patients 75 years or YOUNGER should receive HIGH intensity statin dose unless contraindicated. You will be required to document reason for non-treatment if statin daily dose does not meet guidelines. HIGH DOSE STATIN THERAPY DAILY Atorvastatin > than or = to 40 mg Rosuvastatin > than or = to 20 mg Amlodipine + Atorvastatin > than or = to 2.5/40 mg Ezetimibe + Simvastatin 10/80 mg Simvastatin 80mg Discharge Plan Admission Admit Date/Time: 02/21/24 16:27 Primary Reason for Your Visit: Debility. Attending Provider: Linden Gaona Chi Primary Care Provider: Alma Calzada Instructions Additional Instructions / Restrictions: Discharge home alone 03/08/2024, outpatient PT. Discharge Orders/Prescriptions Prescriptions: New sennosides-docusate sodium [Stimulant Laxative Plus] 8.6-50 mg Tablet 2 tab PO BID 30 Days Qty: 120 0RF aspirin 81 mg Tablet,Delayed Release (Dr/Ec) 81 mg PO BID 9 Days Qty: 0 0RF acetaminophen 500 mg Tablet 1,000 mg PO Q8 Qty: 0 0RF ferrous sulfate [FeroSul] 325 mg (65 mg iron) Tablet 325 mg PO TIDCM 30 Days Qty: 90 0RF Continued paroxetine HCl [Paxil CR] 25 MG tablet extended release 24 hr 25 mg PO DAILY Patient Comments: depression calcium carbonate-vitamin D3 [Oyster Shell Calcium-Vit D3] 1 TABLET tablet 1 tab PO DAILY Patient Comments: supplement alendronate 70 mg tablet 70 mg PO .QSU Discontinued doxycycline monohydrate 100 mg Capsule 100 mg PO BID Qty: 1 0RF Rx Instructions: pt will need 11 more doses with first dose being this pm ferrous sulfate [FeroSul] 325 mg (65 mg iron) Tablet 325 mg PO TIDCM Qty: 0 0RF oxycodone 5 mg Tablet 5 mg PO Q6H PRN (Reason: pain) 1 Days Qty: 4 0RF Ensure Surgery 0.08-1.4 gram-kcal/mL Liquid 237 ml PO TIDCM Qty: 0 0RF Xarelto 10 mg Tablet 10 mg PO DAILY@0600 Qty: 1 0RF Rx Instructions: This is to be taken for total of 14 days postoperatively with a stop date of 03/03/2024 sennosides-docusate sodium [Stimulant Laxative Plus] 8.6-50 mg Tablet 2 tab PO BID Qty: 0 0RF acetaminophen 500 mg Tablet 1,000 mg PO Q8 Qty: 0 0RF aspirin 81 mg tablet,delayed release (DR/EC) 81 mg PO DAILY Qty: 1 0RF Rx Instructions: Started on 03/03/2024 and take for a total of 2 weeks then stop Referrals / Follow Up: Alma Calzada DO [Primary Care Provider] - (Suha said she will schedule this appointment due to transport) Hao Arthur DO [Med Staff - Active Staff] - Within 1 Month (Capsule endoscopy.) Isidoro Crane MD [Med Staff - Active Staff] - Disposition Disposition (needs filled in before D/C Order can be placed): Home, Self Care
[2024-03-05] MEDS: Senna/Docusate Sodium 1 Tablet 2 TABLET PO (21:24)
[2024-03-06] MEDS: Ensure Plus High Protein 120 ML LIQUID PO ×3 (05:50→17:36)
[2024-03-06] MEDS: Acetaminophen 500 MG Tablet 1000 MG PO ×3 (05:50→20:12)
[2024-03-06] MEDS: Senna/Docusate Sodium 1 Tablet 2 TABLET PO ×2 (09:04→20:12)
[2024-03-06] MEDS: Calcium Carb/Vitamin D 1 TABLET Tablet PO (09:04)
[2024-03-06] MEDS: PARoxetine CR 12.5 MG Tablet 25 MG PO (09:04)
[2024-03-06] MEDS: Menthol/Lanolin/Calamine/Znox 113 GM Tube 1 APPLIC TOPICAL (09:04)
[2024-03-06] MEDS: Aspirin E.C. 81 MG Tablet PO ×2 (09:04→20:12)
[2024-03-06] MEDS: Ferrous Sulfate 325 MG Tablet PO ×3 (09:04→17:36)
[2024-03-06 11:02] VITALS: BP 102/54; PULSE 85; RESP 16; TEMP 36.8; O2SAT 99
--- NOTE | 2024-03-06 11:49 | NURSING ---
Doppler compelted, no DVT per feed mill lab technician. Resident updated on results.
[2024-03-06 20:16] VITALS: PULSE 73; RESP 16; O2SAT 97
[2024-03-07] MEDS: Ensure Plus High Protein 120 ML LIQUID PO ×3 (05:29→17:13)
[2024-03-07] MEDS: Acetaminophen 500 MG Tablet 1000 MG PO ×3 (05:30→22:12)
[2024-03-07 06:47] LABS: Absolute Lymphocyte Count 1.03 X10^3/uL (0.83-4.51); Absolute Neutrophil Count 2.5 X10^3/uL (2.0-7.7); Basophil# 0.05 X10^3/uL; Basophil% 1.2 % (0-1); Eosinophil# 0.11 X10^3/uL; Eosinophils% 2.6 % (0-5); Hematocrit 33.2 % (37-47); Hemoglobin 10.2 g/dL (12.0-15.0); Lymphocyte # 1.03 X10^3/ul (0.83-4.51); Lymphocyte % 24.6 % (19-41); Mean Corp Hgb Conc 30.7 g/dL (32-36); Mean Corpuscular Hgb 29.6 pg (27.0-32.0); Mean Corpuscular Volume 96.2 fL (81-99); Monocyte# 0.44 X10^3/uL; Monocyte% 10.5 % (0-10); NRBC Flagged by Analyzer 0 % (0-5); Neutrophil # 2.54 X10^3/uL (2.7-7.7); Neutrophil % 60.9 % (47-70); Platelet Count 430 K/mm3 (150-450); RBC Distribution Width CV 14.7 % (11.6-14.6); RBC Distribution Width SD 52.1 fl (35.1-43.9); Red Blood Count 3.45 M/mm3 (4.2-5.4); White Blood Count 4.2 K/mm3 (4.4-11.0)
[2024-03-07 06:58] LABS: Anion Gap 4 (5-15); BUN 14 mg/dL (7-18); Calcium,Total 8.8 mg/dL (8.5-10.1); Chloride 111 mmol/L (98-107); Creatinine, Serum 0.58 mg/dL (0.55-1.02); EST Glomerular Filtration Rate 107 mL/min (>60); Est Glom Filt Rate - Afr Amer 130 mL/min (>60); Estimated Creatinine Clearance 63.18 ml/min; Glucose 93 mg/dL (74-106); Potassium 3.7 mmol/L (3.5-5.1); Sodium Level 141 mmol/L (136-145)
[2024-03-07] MEDS: Senna/Docusate Sodium 1 Tablet 2 TABLET PO ×2 (10:17→22:12)
[2024-03-07] MEDS: Aspirin E.C. 81 MG Tablet PO ×2 (10:17→22:12)
[2024-03-07] MEDS: PARoxetine CR 12.5 MG Tablet 25 MG PO (10:17)
[2024-03-07] MEDS: Calcium Carb/Vitamin D 1 TABLET Tablet PO (10:17)
[2024-03-07] MEDS: Ferrous Sulfate 325 MG Tablet PO ×3 (10:18→17:13)
[2024-03-07] MEDS: Menthol/Lanolin/Calamine/Znox 113 GM Tube 1 APPLIC TOPICAL ×2 (10:19→22:12)
--- NOTE | 2024-03-07 12:37 | MDS.RN ---
Pain assessment for MDS completed.
--- NOTE | 2024-03-07 15:39 | CASEMGMT ---
Social Work- SW forrest with pt to conduct BIMS assessment; score 15/15 and PHQ9; score 0/2. Pt reports that her experience on TCU has been great and that the staff have all been so friendly and wonderful. SW answered questions regarding discharge procedures, as pt reports that she is d/c tomorrow. Pt reports that her brother will be providing transport. Pt states no needs at this time. AVANI Gongora
[2024-03-07 16:00] VITALS: BP 107/56; PULSE 74; RESP 18; TEMP 36.5; O2SAT 98
[2024-03-07 19:00] VITALS: BP 108/60; PULSE 80; RESP 18; TEMP 36.3; O2SAT 98
[2024-03-08] MEDS: Acetaminophen 500 MG Tablet 1000 MG PO (05:25)
[2024-03-08] MEDS: Ensure Plus High Protein 120 ML LIQUID PO (05:25)
[2024-03-08 05:29] VITALS: BP 104/56; PULSE 68; RESP 17; TEMP 36.8; O2SAT 96
[2024-03-08] MEDS: PARoxetine CR 12.5 MG Tablet 25 MG PO (09:25)
[2024-03-08] MEDS: Aspirin E.C. 81 MG Tablet PO (09:25)
[2024-03-08] MEDS: Senna/Docusate Sodium 1 Tablet 2 TABLET PO (09:25)
[2024-03-08] MEDS: Ferrous Sulfate 325 MG Tablet PO (09:25)
[2024-03-08] MEDS: Calcium Carb/Vitamin D 1 TABLET Tablet PO (09:25)
[2024-03-08] MEDS: Menthol/Lanolin/Calamine/Znox 113 GM Tube 1 APPLIC TOPICAL (09:26)
== END 2024-03-08 10:25 | disposition home or self-care (01) | DRG 559 ==
PROVIDERS: Admitting Provider Family Medicine Geriatric Medicine; PCP Family Medicine; Referring Provider Family Medicine Geriatric Medicine; Visit Provider Family Medicine Geriatric Medicine
DX: M80.051D Age-related osteoporosis with current pathological fracture, right femur, subsequent encounter for fracture with routine healing (principal); K22.11 Ulcer of esophagus with bleeding; M62.82 Rhabdomyolysis; D62 Acute posthemorrhagic anemia; F32.A Depression, unspecified; W19.XXXD Unspecified fall, subsequent encounter; E58 Dietary calcium deficiency; K44.9 Diaphragmatic hernia without obstruction or gangrene; Z79.82 Long term (current) use of aspirin; Z79.01 Long term (current) use of anticoagulants; Z79.83 Long term (current) use of bisphosphonates; M97.01XD Periprosthetic fracture around internal prosthetic right hip joint, subsequent encounter; Z79.899 Other long term (current) drug therapy
CPT/HCPCS: 36415; 80048; 82274; 85014; 85018; 85025; 86850; 86900; 86901; 86920; 86922; 87811; 92522; 92523; 97110; 97116; 97162; 97166; 97530; 97535; J7040; P9016; A4216; J1940

== ENCOUNTER 2024-02-23 15:14 | Outpatient (CLI) | payer MEDICARE, SELFPAY | END 2024-02-23 23:59 | disposition home or self-care (01) | LOC: MEDOUTP 15:15 | PROVIDERS: PCP Family Medicine; Referring Provider Family Medicine Geriatric Medicine; Visit Provider Family Medicine Geriatric Medicine | DX: Z00.00 Encounter for general adult medical examination without abnormal findings (principal) ==

== ENCOUNTER 2024-02-28 13:34 | Day surgery (SDC) | payer MEDICARE, SELFPAY ==
[2024-02-27 14:56] VITALS: BP 106/57; PULSE 79; RESP 16; TEMP 36.8; O2SAT 99; BMI 27.0
--- NOTE | 2024-02-27 15:31 | NURSING ---
SPOKE WITH PATIENT ABOUT BOWEL PREP AND PT STATES SHE HAD BLACK FORMED STOOL IN THE MIDDLE OF THE NIGHT. THIS RN SPOKE WITH TCU, PT'S NURSE WAS AT LUNCH. PREOP CHECKLIST STATES PT STILL HAVING FORMED STOOL. CALLED BACK TO ENDO AND SPOKE TO DR TOMAS, SINCE SHE IS HAVING FORMED STOOL SHE NEEDS MORE BOWEL PREP, FRIEND TO PUT IN ORDERS. PATIENT MADE AWARE AND EXPLAINED SITUATION, PT IS UPSET BUT UNDERSTANDS. CALLED BACK UP TO TCU AND NURSE ELSA MADE AWARE, UNSURE OF DIET STATUS AT THIS TIME. IV TO BE MAINTAINED FOR CASE TOMORROW.
[2024-02-28] VITALS (7 sets, daily range): BP systolic 103–110; BP diastolic 56–66; PULSE 66–74; RESP 16–17; TEMP 36.1–36.9; O2SAT 100; BMI 27.0
--- NOTE | 2024-02-28 13:52 | PCM.PRE.AN2 ---
ASA Classification* ASA Classification ASA Classification: 3 Assessment & Plan Anesthesia* Anesthesia Assessment Anesthesia Assessment: Discussed sedation and/or anesthesia options, risks, benefits, and alternatives with patient/parents/legal guardian/POA. Questions invited. The patient/parents/legal guardian/POA seems to understand and agrees to proceed with anesthesia plan. Reviewed the physical assessment, medical history, allergy history and patient home medications list prior to surgery/procedure/anesthetic and documented any changes. Performed airway and anesthesia risk assessments. Anesthesia Type Anesthesia Type: MAC History Source History Obtained from:: Patient and Chart Anesthesia Focused Assessment* Temperature: 98.4 F Pulse Rate: 74 Blood Pressure: 107/62 Respiratory Rate: 17 Pulse Ox: 100 Oxygen Delivery Method: Room Air Airway Assessment Mouth opens: >3 cm Mallampati Score: IV Teeth Condition: Caps/Crowns (Patient has multiple crowns. All tight.) Neck Range of motion (ROM): Limited ROM (Somewhat decreased extension.) Focused Labs Anesthesia Preop lab: CBC WBC 5.0 K/mm3 (4.4-11.0) 02/22/24 05:30 RBC 2.38 M/mm3 (4.2-5.4) L 02/22/24 05:30 Hgb 10.7 g/dL (12.0-15.0) L 02/24/24 18:08 Hct 33.2 % (37-47) L 02/24/24 18:08 Plt Count 293 K/mm3 (150-450) 02/22/24 05:30 CHEMISTRY Potassium 3.8 mmol/L (3.5-5.1) 02/22/24 05:30 Sodium 141 mmol/L (136-145) 02/22/24 05:30 Magnesium 2.0 mg/dL (1.6-2.6) 02/19/24 06:58 Phosphorus 2.7 mg/dL (2.5-4.9) 02/19/24 06:58 BUN 14 mg/dL (7-18) 02/22/24 05:30 Creatinine 0.51 mg/dL (0.55-1.02) L 02/22/24 05:30 Glucose 109 mg/dL (74-106) H 02/22/24 05:30 COAG PT 14.0 SECONDS (11.7-14.9) 06/24/17 05:35 Pre-Assessment Diagnosis/Proposed Procedure Planned Operative Procedure(s): COLONOSCOPY/EGD Anesthesia History Anesthesia History - insurance office manager: Anesthesia History - insurance office manager Hx Hospitalization Yes 02/26/24 14:46 Any Problems With Anesthesia No 02/26/24 14:46 Cholinesterase deficiency No 02/26/24 14:46 You/Your Family Experience No 02/26/24 14:46 fever (hyperthermia) with Relationship Recent Exposure to Contagious No 02/28/24 13:42 Disease Does patient have nerve No 02/26/24 14:46 stimulator Patient instructed to have device shut off --Does patient have Pacemaker No 02/28/24 13:42 or ICD? When Was Last Pacemaker Check QUESTION #4 FULL TEXT: You/Your Family Experience fever (hyperthermia) with Anesthesia Last Oral Intake Last Oral intake: Last Oral Intake NPO since 00:00 02/28/24 13:42 Meds taken in AM with sips of water? Meds patient instructed to take am of surgery PONV PONV - insurance office manager: PONV - insurance office manager Female Yes 02/26/24 14:46 HX of Motion Sickness No 02/26/24 14:46 HX of N/V After Surgery No 02/26/24 14:46 Non-Smoker Yes 02/26/24 14:46 Duration of Surgery greater No 02/26/24 14:46 than 60 minutes Number of Risk Factors 2 02/26/24 14:46 PONV Score Moderate Risk 02/26/24 14:46 Height & Weight Height & Weight: Anesthesia: Height & Weight Height 5 ft 8 in 02/28/24 13:42 Weight: 80.739 kg 02/28/24 13:42 Body Mass Index (BMI) 27.0 02/28/24 13:42 Respiratory Assessment Respiratory Assessment - insurance office manager: Respiratory Tract Infection Hx - insurance office manager Hx Respiratory Tract Infection No 02/26/24 14:46 STOP Sleep Apnea STOP Sleep Apnea - insurance office manager: STOP Sleep Apnea - insurance office manager Hx Hypertension No 02/26/24 14:46 Hx Sleep Apnea No 02/26/24 14:46 CPAP No 02/26/24 14:46 BIPAP No 02/26/24 14:46 Do you snore loudly (louder No 02/26/24 14:46 than talking or can be heard Do you often feel tired/ No 02/26/24 14:46 fatigued/ sleepy during daytime? Has anyone observed you stop No 02/26/24 14:46 breathing during sleep? STOP Results Negative 02/26/24 14:46 QUESTION #5 FULL TEXT : Do you snore loudly (louder than talking or can be heard through closed doors)? Tobacco Use History Tobacco Use History - insurance office manager: Tobacco Use History - insurance office manager Tobacco Use Smoking Status Never smoker 02/26/24 14:46 Hx Tobacco Use No 02/26/24 14:46 Years Smoking Packs Smoked per Day Smoking Cessation Date was within the last 15 years Hx Smoking Cessation Date Hx Smoking Cessation Counseling Hematologic Medial History Hematologic Hx - insurance office manager: Hematologic Medical Hx - chemical process analyst Hx of Blood Transfusion Yes 02/26/24 14:46 Hx of Transfusion in last 3 Yes 02/26/24 14:46 Months Date of Last Transfusion (if 02/23/2024 02/26/24 14:46 within last 3 months) Ever experience any problems No 02/26/24 14:46 with transfusion(s)? Specify any problems Hx of Preganancy in last 3 No 02/26/24 14:46 Months Nurse Filling Out Transfusion VCHRISTIN 02/26/24 14:46 & Questions: Date: 02/26/24 02/26/24 14:46 Time: 14:47 02/26/24 14:46 Patient unable to answer at this time (ie. confused, unrespo /Reproduction History /Reproductive History - insurance office manager: /Reproductive Hx- insurance office manager Hx Now Gestational Age (in weeks): EDC: Hx Hx Para Hx Section SAB PFSH Medical History Post-menopausal Arthritis Non-smoker History of rheumatic fever History of revision of total replacement of right hip joint Ankle fracture Ovarian cyst Cataract Cataract Osteoporosis Fracture of inferior pubic ramus Fracture of superior pubic ramus Depression Home Medications ?Medication ?Instructions ?Recorded ?Last Taken ?Type paroxetine HCl 25 mg 25 mg PO DAILY depression 08/18/14 02/21/24 History tablet,extended release 24 hr (Paxil CR) calcium 500 mg (as 1 tab PO DAILY supplement 06/25/17 Unknown History carbonate)-vitamin D3 5 mcg (200 unit) tablet (Oyster Shell Calcium-Vitamin D3) alendronate 70 mg tablet 70 mg PO .QSU see physici 02/16/24 02/10/24 History acetaminophen 500 mg tablet 1,000 mg (2 x 500 mg) PO Q8 pain 02/21/24 02/21/24 Rx #0 tabs aspirin 81 mg tablet,delayed 81 mg PO DAILY Heart health #1 TAB 02/21/24 Unknown Rx release doxycycline monohydrate 100 mg 100 mg PO BID Antibiotic #1 cap 02/21/24 02/21/24 Rx capsule ferrous sulfate 325 mg (65 mg 325 mg PO TIDCM Supplement #0 tabs 02/21/24 02/21/24 Rx iron) tablet (FeroSul) nut.tx.comp. immune systm,reg 0.08 237 ml PO TIDCM supplement #0 mL 02/21/24 02/21/24 Rx gram-1.4 kcal/mL oral liquid (Ensure Surgery) oxycodone 5 mg tablet 5 mg PO Q6H PRN pain 1 day #4 tabs 02/21/24 02/17/24 Rx rivaroxaban 10 mg tablet (Xarelto) 10 mg PO DAILY@0600 Blood thinner 02/21/24 02/22/24 Rx #1 TAB sennosides 8.6 mg-docusate sodium 2 tab PO BID Stool softner #0 tabs 02/21/24 02/21/24 Rx 50 mg tablet (Stimulant Laxative Plus) Allergy/AdvReac Type Severity Reaction Status Date / Time No Known Allergies Allergy Verified 02/27/24 14:55 Surgical History History of ankle surgery History of appendectomy History of right hip replacement Social History household members: none Smoking Status: Never smoker alcohol intake: never substance use type: does not use Review of Systems (Anesthesia) ROS Narrative System reviewed and no additional complaints, except as documented.
--- NOTE | 2024-02-28 13:59 | HP.PCM_ITS ---
History and Physical Date of Admission: 02/28/24 Reason for Consultation: Anemia HPI Narrative: ABBY MENDOZA, is a 74-year-old white female who had a mechanical fall while handing out [id number] candy. CBC showed anemia with hemoglobin of 9.7 (baseline hemoglobin is unclear however patient did have lab here in 2018 at which time her hemoglobin was 10.1. Chemistry panel was overtly unremarkable. Glucose was 116 nonfasting. Initial CK was noted to be 716 and on repeat was 411. UA was performed and was consistent with mild rhabdomyolysis. CT of the brain showed no acute intercranial process with no significant change since previous exam and stable dilated ventricles unchanged from previous. CT of the cervical spine was unremarkable. Chest x-ray showed no acute cardiopulmonary process. Initial hip and pelvic x-ray was unremarkable but with persistent pain CT of the lower extremity was performed and demonstrated an acute periprosthetic fracture of the right femur involving the greater trochanter and extending into the femoral shaft below the level of the femoral portion of the hip prosthesis. She was admitted to the medical floor hydrated and consultation to orthopedic surgery was placed. She was taken to the OR on 01/17/2024 where a revision of the right total hip replacement femoral and acetabular component was performed. Postoperatively she will be on Xarelto 10 mg daily x 2 weeks followed by aspirin 81 mg daily for 2 weeks. Doxycycline 100 mg p.o. twice daily for 2 weeks and patient will be 50% weightbearing with no active abduction for 6 weeks and the patient will be on 3 months of posterior hip precautions. Weightbearing is to be progressed by the orthopedic surgeon after follow-up imaging in the office in 2 weeks. Postoperatively she was anemic however she did have fairly significant blood loss intraoperatively with 750cc she was also +2 to 3 L as well. It was suspected that it was related to blood loss and hemodilution. She was given 2 units of packed red blood cells and her hemoglobin has since stabilized. She was started on oral iron since we do know she lost blood while hospitalized with surgery. She will need to continue bowel regimen as she has been using narcotics for pain and with the initiation of the iron. She has been on iron therapy and was transferred to transitional care unit. Her hemoglobin did drop down to 7.1 and she received blood transfusion and her current hemoglobin is up to 10.1. [facility] Medical History (Updated 02/21/24 @ 18:[address] Linden Gaona MD) Depression History of revision of total replacement of right hip joint Fracture of superior pubic ramus Fracture of inferior pubic ramus Ankle fracture Ovarian cyst Cataract Cataract Osteoporosis Home Medications ?Medication ?Instructions ?Recorded ?Last Taken ?Type paroxetine HCl 25 mg 25 mg PO DAILY depression 08/18/14 02/21/24 History tablet,extended release 24 hr (Paxil CR) calcium 500 mg (as 1 tab PO DAILY supplement 06/25/17 Unknown History carbonate)-vitamin D3 5 mcg (200 unit) tablet (Oyster Shell Calcium-Vitamin D3) alendronate 70 mg tablet 70 mg PO .QSU see physici 02/16/24 02/10/24 History acetaminophen 500 mg tablet 1,000 mg (2 x 500 mg) PO Q8 pain 02/21/24 02/21/24 Rx #0 tabs aspirin 81 mg tablet,delayed 81 mg PO DAILY Heart health #1 TAB 02/21/24 Unknown Rx release doxycycline monohydrate 100 mg 100 mg PO BID Antibiotic #1 cap 02/21/24 02/21/24 Rx capsule ferrous sulfate 325 mg (65 mg 325 mg PO TIDCM Supplement #0 tabs 02/21/24 02/21/24 Rx iron) tablet (FeroSul) nut.tx.comp. immune systm,reg 0.08 237 ml PO TIDCM supplement #0 mL 02/21/24 02/21/24 Rx gram-1.4 kcal/mL oral liquid (Ensure Surgery) oxycodone 5 mg tablet 5 mg PO Q6H PRN pain 1 day #4 tabs 02/21/24 02/17/24 Rx rivaroxaban 10 mg tablet (Xarelto) 10 mg PO DAILY@0600 Blood thinner 02/21/24 02/21/24 Rx #1 TAB sennosides 8.6 mg-docusate sodium 2 tab PO BID Stool softner #0 tabs 02/21/24 02/21/24 Rx 50 mg tablet (Stimulant Laxative Plus) Allergy/AdvReac Type Severity Reaction Status Date / Time No Known Allergies Allergy Verified 06/23/17 16:23 Surgical History History of ankle surgery History of appendectomy History of right hip replacement Social History (Updated 02/21/24 @ 18:[address] Linden Gaona MD) household members: none Smoking Status: Never smoker alcohol intake: never substance use type: does not use ROS Constitutional Constitutional: Denies chills, fever(s) or weight gain ENT HEENT: Denies headache(s), nasal congestion or nasal discharge Cardiovascular Cardiovascular: Denies chest pain or palpitations Respiratory/Chest Respiratory/Chest: Denies cough, excessive phlegm production or shortness of breath with exertion Gastrointestinal Gastrointestinal: Denies abdominal pain, nausea or vomiting Genitourinary Genitourinary: Denies dysuria Musculoskeletal Musculoskeletal: Denies joint pain or joint swelling Integumentary Integumentary: Denies rash or wounds Neurologic Neurologic: Denies focal weakness, numbness or tingling Psychiatric Psychiatric: Denies anxiety, auditory hallucinations, depression, homicidal ideation or suicidal ideation Physical Exam Const alert General Appearance: cooperative HEENT normocephalic Eyes PERRL and EOMs intact bilaterally Neck supple, no JVD and no carotid bruits Resp normal respiratory effort, normal air movement and clear to auscultation bilaterally Cardio regular rate and regular rhythm GI normal to inspection, nondistended, normoactive bowel sounds, non-tender and non-distended Extremity normal capillary refill General Extremity: Negative for edema Skin no rashes or lesions noted General Skin Exam: no breakdown Psych affect normal Appearance: appropriate Lab / Micro Data 02/24/24 18:08 02/22/24 05:30 Labs: Laboratory Results - last 24 hr 02/24/24 18:08: Hgb 10.7 L, Hct 33.2 L Assessment & Plan Assessment/Plan (1) Periprosthetic fracture around internal prosthetic right hip joint, initial encounter: (2) Rhabdomyolysis: (3) Right hip pain: (4) Debility: (5) Anemia: PLAN: Plan 74-year-old with history of osteoporosis and recent right periprosthetic hip fracture The plan is for her to be on Xarelto 10 mg daily for 2 weeks followed by aspirin 81 mg twice daily for 2 weeks with posterior hip precautions for 3 months with no active abduction for 6 weeks Her Iron studies were obtained and consistent with chronic disease. However she could have acute blood loss anemia from aspirin induced peptic ulcer disease requiring blood transfusions. She should undergo an upper endoscopy to evaluate upper GI tract and lower GI tract. She will prep for an EGD and colonoscopy tomorrow 02/26/2024 and we will plan on doing the procedures on 02/27/2024. I have examined the patient and the H&P has been reviewed. There are no clinical changes since date of exam.
--- NOTE | 2024-02-28 15:15 | OP.EGD_ITS ---
Patient Name: Suha Peguero Procedure Date: 02/28/2024 2:02 PM Date of : 1950 Age: 74 Procedure: Upper GI endoscopy Indications: Acute post hemorrhagic anemia, Iron deficiency anemia, Unexplained iron deficiency anemia, Recent gastrointestinal bleeding Providers: Hao Arthur DO Referring MD: Alma Jarquin Do Medicines: Monitored Anesthesia Care Patient Profile: This is a 74 year old female. Refer to note in patient chart for documentation of history and physical. Patient has symptoms. Complications: No immediate complications. Procedure: Pre-Anesthesia Assessment: - Prior to the procedure, a History and Physical was performed, and patient medications and allergies were reviewed. The patient is competent. The risks and benefits of the procedure and the sedation options and risks were discussed with the patient. All questions were answered and informed consent was obtained. Patient identification and proposed procedure were verified by the physician in the pre-procedure area. Mental Status Examination: alert and oriented. CV Examination: normal. Prophylactic Antibiotics: The patient does not require prophylactic antibiotics. Prior Anticoagulants: The patient has taken no anticoagulant or antiplatelet agents except for NSAID medication. ASA Grade Assessment: II - A patient with mild systemic disease. After reviewing the risks and benefits, the patient was deemed in satisfactory condition to undergo the procedure. The anesthesia plan was to use monitored anesthesia care (MAC). Immediately prior to administration of medications, the patient was re-assessed for adequacy to receive sedatives. The heart rate, respiratory rate, oxygen saturations, blood pressure, adequacy of pulmonary ventilation, and response to care were monitored throughout the procedure. The physical status of the patient was re-assessed after the procedure. After obtaining informed consent, the endoscope was passed under direct vision. Throughout the procedure, the patient's blood pressure, pulse, and oxygen saturations were monitored continuously. The colonoscope was introduced through the mouth, and advanced to the third part of duodenum. The upper GI endoscopy was accomplished without difficulty. The patient tolerated the procedure well. Scope In: 2:14:35 PM Scope Out: 2:20:04 PM Total Procedure Duration Time 0 hours 5 minutes 29 seconds Findings: One linear esophageal ulcer oozing blood was found 38 to 40 cm from the incisors. The lesion was 6 mm in largest dimension. Coagulation for hemostasis using heater probe was successful. Estimated blood loss was minimal. A large hiatal hernia was present. No other significant abnormalities were identified in a careful examination of the stomach. No gross lesions were noted in the first portion of the duodenum. Impression: - Esophageal ulcer oozing blood. Treated with a heater probe. - Large hiatal hernia. - No gross lesions in the first portion of the duodenum. - No specimens collected. Recommendation: - Return patient to referring hospital for ongoing care. - Advance diet as tolerated. - Continue present medications. Procedure Code(s): --- Professional --- 43950, Esophagogastroduodenoscopy, flexible, transoral; with control of bleeding, any method CPT copyright 2021 [employer]. All rights reserved. The codes documented in this report are preliminary and upon labor mediator review may be revised to meet current compliance requirements. Hao Arthur DO 02/28/2024 3:14:49 PM This report has been signed electronically. Number of Addenda: 0 Note Initiated On: 02/28/2024 2:02 PM
--- NOTE | 2024-02-28 15:15 | OP.CCLET_ITS ---
02/28/2024 Alma Jarquin Do Re : Upper GI endoscopy procedure for Suha Peguero Dear Milka This procedure was performed on February. My impressions and recommendations are as follows: Impressions : - Esophageal ulcer oozing blood. Treated with a heater probe. - Large hiatal hernia. - No gross lesions in the first portion of the duodenum. - No specimens collected. Recommendations : - Return patient to referring hospital for ongoing care. - Advance diet as tolerated. - Continue present medications. My findings are described in the full procedure note, which is enclosed. If I can be of further assistance, please feel free to contact me at . Sincerely, Hao Arthur, 02/28/2024 3:14:49 PM This report has been signed electronically.
--- NOTE | 2024-02-28 15:16 | OP.COLON_ITS ---
Patient Name: Suha Peguero Procedure Date: 02/28/2024 2:20 PM Date of : 1950 Age: 74 Procedure: Colonoscopy Indications: This is the patient's first colonoscopy Providers: Hao Arthur DO Referring MD: Alma Jarquin Do Medicines: Monitored Anesthesia Care Patient Profile: This is a 74 year old female. Refer to note in patient chart for documentation of history and physical. Patient has symptoms. Last Colonoscopy: more than 10 years ago. Complications: No immediate complications. Procedure: Pre-Anesthesia Assessment: - Prior to the procedure, a History and Physical was performed, and patient medications and allergies were reviewed. The patient is competent. The risks and benefits of the procedure and the sedation options and risks were discussed with the patient. All questions were answered and informed consent was obtained. Patient identification and proposed procedure were verified by the physician in the pre-procedure area. Mental Status Examination: alert and oriented. CV Examination: normal. Prophylactic Antibiotics: The patient does not require prophylactic antibiotics. Prior Anticoagulants: The patient has taken no anticoagulant or antiplatelet agents except for NSAID medication. ASA Grade Assessment: II - A patient with mild systemic disease. After reviewing the risks and benefits, the patient was deemed in satisfactory condition to undergo the procedure. The anesthesia plan was to use monitored anesthesia care (MAC). Immediately prior to administration of medications, the patient was re-assessed for adequacy to receive sedatives. The heart rate, respiratory rate, oxygen saturations, blood pressure, adequacy of pulmonary ventilation, and response to care were monitored throughout the procedure. The physical status of the patient was re-assessed after the procedure. After I obtained informed consent, the scope was passed under direct vision. Throughout the procedure, the patient's blood pressure, pulse, and oxygen saturations were monitored continuously. The colonoscope was introduced through the anus and advanced to the terminal ileum. The colonoscopy was performed without difficulty. The patient tolerated the procedure well. The quality of the bowel preparation was adequate. The terminal ileum, ileocecal valve, appendiceal orifice, and rectum were photographed. Scope In: 2:24:11 PM Scope Withdrawal Time 0 hours 11 minutes 10 seconds Scope Out: 3:05:13 PM Total Procedure Duration Time 0 hours 41 minutes 2 seconds Findings: The perianal and digital rectal examinations were normal. The entire examined colon appeared normal on direct and retroflexion views. Impression: - The entire examined colon is normal on direct and retroflexion views. - No specimens collected. Recommendation: - Return patient to referring hospital for ongoing care. - Advance diet as tolerated. - Continue present medications. -Capsule endoscopy - No repeat colonoscopy due to age. Procedure Code(s): --- Professional --- 10603, Colonoscopy, flexible; diagnostic, including collection of specimen(s) by brushing or washing, when performed (separate procedure) CPT copyright 2021 [employer]. All rights reserved. The codes documented in this report are preliminary and upon microbiology technologist review may be revised to meet current compliance requirements. Hao Arthur DO 02/28/2024 3:16:39 PM This report has been signed electronically. Number of Addenda: 0 Note Initiated On: 02/28/2024 2:20 PM
--- NOTE | 2024-02-28 15:16 | PCM.POST.ANE ---
Anesthesia: Postop Eval I Current Vital Signs Temperature: 97.9 F Pulse Rate: 74 Blood Pressure: 105/63 Respiratory Rate: 16 Pulse Ox: 100 Oxygen Delivery Method: Room Air Assessment Airway patent: Yes Spontaneous unlabored respirations: Yes Mental status: Awake and Calm nausea: No Vomiting: No Anesthesia Complication: No Fluid Hydration Crystalloid volume administer (ml): 60 Total IV fluid infused: 60 Progress Note Anesthesia document: Postop Eval 1 completed: Yes
--- NOTE | 2024-02-28 15:17 | OP.CCLET_ITS ---
02/28/2024 Alma Jarquin Do Re : Colonoscopy procedure for Suha Peguero Dear Milka This procedure was performed on February. My impressions and recommendations are as follows: Impressions : - The entire examined colon is normal on direct and retroflexion views. - No specimens collected. Recommendations : - Return patient to referring hospital for ongoing care. - Advance diet as tolerated. - Continue present medications. -Capsule endoscopy - No repeat colonoscopy due to age. My findings are described in the full procedure note, which is enclosed. If I can be of further assistance, please feel free to contact me at . Sincerely, Hao Arthur, 02/28/2024 3:16:39 PM This report has been signed electronically.
--- NOTE | 2024-02-28 15:52 | SUR.PHASEII ---
REPORT CALLED TO TCU RN
--- NOTE | 2024-02-29 08:43 | PCM.POSTANE2 ---
Anesthesia Postop Eval I Sum Postop Eval Completion status Anesthesia document: Postop Eval 1 completed: Yes Anesthesia Postop Eval I Summary Anesthesia Postop Eval I Summary: Anesthesia Postop Eval I: Assessment Summary Airway patent Yes 02/28/24 15:17 [email or web address] Spontaneous unlabored Yes 02/28/24 15:17 [email or web address] respirations Mental status Awake,Calm 02/28/24 15:17 [email or web address] nausea No 02/28/24 15:17 [email or web address] Vomiting No 02/28/24 15:17 [email or web address] Anesthesia Postop Eval I: Fluid Summary Crystalloid volume administer 60 02/28/24 15:17 [email or web address] (ml) Colloids volume administered ( ml) Blood Product volume administered (ml) Total IV fluid infused 60 02/28/24 15:17 [email or web address] Anesthesia Postop Eval I: Summary Notes Anesthesia Complication No 02/28/24 15:17 [email or web address] Anesthesia Complication Comment: Post-operative progress note Anesthesia: Postop Eval II Evaluation Mental status: Awake Pain Level: 0 nausea: No Vomiting: No
== END 2024-03-03 08:21 | disposition skilled nursing facility (03) ==
LOC: EN 13:35 → AC 13:35
PROVIDERS: PCP Family Medicine; Referring Provider Family Medicine; Visit Provider Internal Medicine Gastroenterology
PROC: 0DJD8ZZ Inspection of Lower Intestinal Tract, Via Natural or Artificial Opening Endoscopic (ICD-10-PCS; CPT 45378; principal; 2024-02-28 11:25)
DX: D62 Acute posthemorrhagic anemia (principal); K22.11 Ulcer of esophagus with bleeding; K44.9 Diaphragmatic hernia without obstruction or gangrene; D50.9 Iron deficiency anemia, unspecified
CPT/HCPCS: 43255; 45378; A4216; J2405

== ENCOUNTER → 2024-03-06 | Outpatient (CLI) | payer MEDICARE, SELFPAY ==
--- NOTE | 2024-03-06 08:44 | VDLE_ITS ---
Reason For Study: Right leg swelling RIGHT LEFT GSV is normal. CFV is compressible, spontaneous, phasic, CFV is compressible, spontaneous, phasic, competent, and demonstrates normal competent and demonstrates normal augmentation. augmentation. FV is compressible, spontaneous, phasic, competent and demonstrates normal augmentation. POP V is compressible, spontaneous, phasic, competent and demonstrates normal augmentation. T/P Trunk is compressible. PTV is compressible. RT PerV is compressible. Nonvascularized structure is noted in the right popliteal fossa that measures 1.07 x 2.64 x 4.94 cm. Procedure This is a venous duplex using B-mode, color flow and spectral Doppler. Exam performed portable in patient room. A preliminary report was called and/or faxed to TCU RN. VL/Venous Duplex US, Unilateral Interpretation Summary Deep veins of the right lower extremity are patent and compressible segmentally . There is no evidence of right lower extremity deep vein thrombosis. Valvular competence ambrose ears intact within the proximal deep venous system on the right . The right great saphenous vein a ppears patent and compressible segmentally. The left common femoral vein is patent and compressib le . A non-vascular, hypoechoic structure is noted in the right popliteal space, measuring 1.07 cm x 2.64 cm x 4.94 cm. This probably represents a popliteal cyst. Clinical correlation is advised. Ordering Physician: Linden Gaona Chi Referring Physician: Alma Calzada Performed By: Lynsey Kay RVT
== END | disposition home or self-care (01) ==
LOC: CVS 08:44
PROVIDERS: PCP Family Medicine; Referring Provider Family Medicine Geriatric Medicine; Visit Provider Family Medicine Geriatric Medicine
DX: R22.41 Localized swelling, mass and lump, right lower limb (principal)
CPT/HCPCS: 93971

== ENCOUNTER 2024-04-28 10:00 | Outpatient (RCR) | payer MEDICARE, SELFPAY ==
--- NOTE | 2024-03-20 16:33 | HP.PTEVAL_ITS ---
Patient's Visit Information Visit Information Visit Information: ABBY MENDOZA is a 74 year old F referred to Physical Therapy by Dr. Linden Gaona MD with a diagnosis of R OTILIA 02/17/24. Date of Evaluation: 03/20/24 Physical Therapist: Stephen Nick, PT, ATC Visit Plan Frequency: 2-3x /Week Duration: 4-6 Weeks Plan: R hip strengthening, core stab ex's, balance and proprio, gait training, nustep, and HEP Subjective Subjective: DOS: 02/17/24. Pt reports she was trying to sit down on a folding chair and she fell, which resulted in a R hip fracture. Pt notes she had a R OTILIA performed at that time. Pt reports she went to the [facility]CU after her surgery where she was there for 3 weeks. Pt notes she had therapy the entire time she was there which she really felt helped her a lot. Pt reports now she has been home for about a week. Pt reports she was given a HEP there which she has been completing somewhat. Pt notes she is still making good progress at this time. Pt lives by herself. She lives in a one story house which has 4 steps to enter her house. She negotiates them one step at a time. Pt reports her major goal is to be able to drive again. Pt notes no sleep difficulty at this time secondary to pain. 0/10 pain while sitting here at rest, 1/10pain at worst (when she has to ambulate further distances). Prior to this surgery, pt did not use an AD. Pain R hip: Pain Intensity (Out of 10): 0 Pain Intensity Range: 1 Objective Objective: Neuro: B LE sensation is WNL to light touch. B patellar reflex= 2/3 ROM: B LE's are WNL when compared bilaterally MMT: L hip flex= 18, abd= 39, Add= 29 #F; R hip flex= 8, abd= 25, add= 26 #F TU seconds 30 second sit to stands: 7 reps Balance/Special Test Scores Lower Extremity Functional Score: 19 Goals Goal 1:: Decrease R hip pain x 50% to aid with standing tolerance Goal Time Frame: 4-6 Weeks Goal 2:: Increase R hip flexion and abduction x 10 #F to aid with car transfers Goal Time Frame: 4-6 Weeks Goal 3:: Pt will perform TUG in under 15 seconds to aid with ambulation efficiency Goal Time Frame: 4-6 Weeks Goal 4:: Pt will perform 12 sit to stands in 30 seconds to aid with I at home. Goal Time Frame: 4-6 Weeks Goal 5:: I with HEP Rehabilitation Potential Physical Therapy Diagnosis: Pt has R hip pain, weakness, and difficulty with ambulation secondary to R OTILIA Rehabilitation Potential: Good Anticipated Interventions Patient/Client Instruction: Educate patient on: Condition and Plan of Care For the Purpose of:: To improve self management Therapeutic Exercise to Include: Strength training, Endurance training, Balance training, Gait and locomotor training and Dynamic Lumbar Stabilization For the Purpose of:: To decrease pain, To improve muscle performance and motor function and To increase tolerance to activity/condition/position Text: Thank you for the opportunity to evaluate your patient. For Medicare and Medicare HMO plans, please review the plan of care and approve it. It will need to be FAXED BACK to us at [phone] for Medicare purposes. For Medicare only, by signing this I certify the plan of care. Please let me know if there are questions or concerns regarding this plan of care. Physician Signature: __Date:
--- NOTE | 2024-07-02 13:39 | HP.PT.NRP ---
Patient Information Patient Information: ABBY MENDOZA was seen in my office for initial evaluation on 03/20/24. The following Plan of Care was established for this patient: POC Established Initial Frequency: 2-3x /Week Initial Duration: 4-6 Weeks Anticipated Interventions Patient/Client Instruction: Educate patient on: Condition and Plan of Care For the Purpose of:: To improve self management Therapeutic Exercise to Include: Strength training, Endurance training, Balance training, Gait and locomotor training and Dynamic Lumbar Stabilization For the Purpose of:: To decrease pain, To improve muscle performance and motor function and To increase tolerance to activity/condition/position Last Seen Last Seen: This patient was last seen in our office . Pertinent comments regarding their Physical therapy will appear below: Pt has not returned to therapy in greater than 30 days and is discontinued at this time. At this point I will be discontinuing this patient from physical therapy. I would be happy to see this patient again in the future if found appropriate by the physician. Thank you! Stephen Nick, PT, ATC Balance/Gait/Functional tests Balance/Special Test Scores Lower Extremity Functional Score: 19
== END 2024-04-28 19:00 | disposition home or self-care (01) ==
LOC: PT 10:00
PROVIDERS: PCP Family Medicine; Referring Provider Family Medicine Geriatric Medicine; Visit Provider Family Medicine Geriatric Medicine
DX: S72.001D Fracture of unspecified part of neck of right femur, subsequent encounter for closed fracture with routine healing (principal)
CPT/HCPCS: 97110; 97161